=== PATIENT | male | born 1970 | race Caucasian/White ===

== ENCOUNTER → 2016-09-14 | Outpatient (CLI) | payer OTHER ==
[~2016-09-14] MED LIST: ACET500C35 PO; AMLO-114 PO; BENZ100C84 PO; HYDR-5688 PO; HYDR25TA5 PO; IBUP200T80 PO; ONDA4TAB10 SL; OXYC-57 PO; PRED-301 PO; SIMV20TA5 PO; VNTHFA/IN INH
--- NOTE | 2016-09-14 13:44 | DIAGNOSTIC IMAGING REPORT ---
CHEST 2 VIEWS ROUTINE CLINICAL HISTORY: Asthma COMPARISON STUDY: 05/21/2016 FINDINGS: The cardiac and mediastinal contours are normal. There is no evidence of focal pulmonary consolidation. There is no evidence of failure. No pleural effusions are visualized.[ A tiny density at the left lung base remains unchanged the prior study and likely reflects an area of atelectasis/scar. IMPRESSION: No active disease in the chest. Electronically signed by: Adiel Mcclure M.D. 09/14/2016 1:42 PM Dictated Date/Time: 09/14/2016 1:42 PM
[2016-09-14 14:46] LABS: BASO % 0.7 %; BASO ABS # 0.06 K/uL (0-0.2); COMPLETE YES; EOS % 1.5 %; HEMATOCRIT 43.7 % (42-52); IG% 1.1 %; LYMPH % 33.1 %; LYMPH ABS # 2.83 K/uL (1.2-3.4); MEAN CELL VOLUME 87.4 fL (80-100); MEAN CORPUSCULAR HEMOGLOBIN 32.2 pg (25-34); MEAN CORPUSCULAR HGB CONC 36.8 g/dl (32-36); MONO % 9.9 %; NEUT % 53.7 %; PLATELET COUNT 256 K/uL (130-400); WHITE BLOOD COUNT 8.55 K/uL (4.8-10.8)
[2016-09-14 15:09] LABS: BLOOD UREA NITROGEN 13 mg/dl (7-18); BUN/CREATININE RATIO 12.9 (10-20); CALCIUM 9.2 mg/dl (8.5-10.1); CARBON DIOXIDE 28 mmol/L (21-32); CHLORIDE 105 mmol/L (98-107); GLUCOSE 67 mg/dl (70-99); POTASSIUM 3.5 mmol/L (3.5-5.1); SODIUM 142 mmol/L (136-145)
== END | disposition home or self-care (01) ==
LOC: C.RAD1850 13:36
PROVIDERS: ATTEND Nurse Practitioner
DX: J45.909 Unspecified asthma, uncomplicated (principal)

== ENCOUNTER → 2016-10-13 | Outpatient (CLI) | payer OTHER ==
[2016-10-13 12:27] LABS: BASO % 0.6 %; BASO ABS # 0.03 K/uL (0-0.2); COMPLETE YES; EOS % 2.4 %; HEMATOCRIT 45.3 % (42-52); IG% 0.2 %; LYMPH % 29.1 %; LYMPH ABS # 1.45 K/uL (1.2-3.4); MEAN CELL VOLUME 89.3 fL (80-100); MEAN CORPUSCULAR HEMOGLOBIN 32.7 pg (25-34); MEAN CORPUSCULAR HGB CONC 36.6 g/dl (32-36); MEAN PLATELET VOLUME 10.4 fL (7.4-10.4); MONO % 7.6 %; NEUT % 60.1 %; PLATELET COUNT 246 K/uL (130-400); RED BLOOD COUNT 5.07 M/uL (4.7-6.1); WHITE BLOOD COUNT 4.99 K/uL (4.8-10.8)
[2016-10-13 12:47] LABS: BLOOD UREA NITROGEN 6 mg/dl (7-18); GLUCOSE 77 mg/dl (70-99)
[2016-10-13 12:48] LABS: ALB/GLOB RATIO 1.2 (0.9-2); ALKALINE PHOSPHATASE 63 U/L (45-117); ALT/SGPT 36 U/L (12-78); AST/SGOT 20 U/L (15-37); BUN/CREATININE RATIO 5.7 (10-20); CALCIUM 9.2 mg/dl (8.5-10.1); CARBON DIOXIDE 26 mmol/L (21-32); CHLORIDE 104 mmol/L (98-107); HDL CHOLESTEROL 43 mg/dl; POTASSIUM 3.8 mmol/L (3.5-5.1); SODIUM 139 mmol/L (136-145)
[2016-10-13 12:59] LABS: CHOLESTEROL 215 mg/dl (0-200); LDL CHOLESTEROL CALCULATED 133 mg/dl; TRIGLYCERIDES 195 mg/dl (0-150); VERY LOW DENSITY LIPOPROT CALC 39 mg/dl
== END | disposition home or self-care (01) ==
LOC: C.LABBFT 10:40
PROVIDERS: ATTEND Nurse Practitioner
DX: E78.00 Pure hypercholesterolemia, unspecified (principal); E55.9 Vitamin D deficiency, unspecified; R53.83 Other fatigue

== ENCOUNTER → 2016-12-07 | Outpatient (CLI) | payer OTHER ==
[~2016-12-07] MED LIST changes: -OXYC-57 PO
--- NOTE | 2016-12-07 12:48 | DIAGNOSTIC IMAGING REPORT ---
KUB CLINICAL HISTORY: N50.819 Testicular [id number] COMPARISON STUDY: CT scan dated 06/16/2016 FINDINGS: There are postsurgical changes in the left inguinal region. There is no pathologic bowel dilatation. There are no calcification suspicious for urinary tract calculi. IMPRESSION: 1. No evidence of pathologic bowel dilatation 2. No calculi identified on conventional radiographic imaging 3. Postsurgical changes, likely secondary to left inguinal hernia repair Electronically signed by: Adiel Mcclure M.D. 12/07/2016 12:45 PM Dictated Date/Time: 12/07/2016 12:44 PM
--- NOTE | 2016-12-07 13:12 | DIAGNOSTIC IMAGING REPORT ---
TESTICULAR ULTRASOUND HISTORY: Pain N50.819 Testicular [id number] COMPARISON: 05/12/2016 FINDINGS: Right testis: Maximum dimension 4.5 cm. Normal vascular flow. Hypoechoic region previously described measuring 2 mm at the upper pole. Represent a blood vessel and/or vein. Left testis: Maximum dimension 4.6 cm. Normal vascular flow IMPRESSION: Normal testicular ultrasound. Normal vascular flow bilaterally. Electronically signed by: Ehsan Young M.D. 12/07/2016 1:10 PM Dictated Date/Time: 12/07/2016 1:09 PM
== END | disposition home or self-care (01) ==
LOC: C.ULTR 12:05
PROVIDERS: ATTEND Urology
DX: E55.9 Vitamin D deficiency, unspecified (principal); N50.819 Testicular pain, unspecified

== ENCOUNTER 2017-01-14 12:03 | Emergency (ER) | payer OTHER ==
[~2017-01-14] VITALS: Ht 175.3 cm; Wt 115.3 kg
[~2017-01-14 12:03] MED LIST changes: -BENZ100C84 PO; -HYDR-5688 PO; -IBUP200T80 PO; -ONDA4TAB10 SL; -PRED-301 PO; -VNTHFA/IN INH
[2017-01-14 12:06] VITALS: TEMP 37.4; Ht 175.3 cm; Wt 115.3 kg
[2017-01-14] MEDS ORDERED: ALBUT/IPRATROP 3MG/0.5MG NEB 3 ML VIAL INH STA ×2 (12:36→15:49)
[2017-01-14 13:22] LABS: BASO % 0.1 %; BASO ABS # 0.01 K/uL (0-0.2); COMPLETE YES; HEMATOCRIT 41.9 % (42-52); LYMPH % 6.4 %; LYMPH ABS # 0.46 K/uL (1.2-3.4); MEAN CELL VOLUME 90.3 fL (80-100); MEAN CORPUSCULAR HEMOGLOBIN 31.5 pg (25-34); MEAN CORPUSCULAR HGB CONC 34.8 g/dl (32-36); MEAN PLATELET VOLUME 9.9 fL (7.4-10.4); MONO % 6.8 %; NEUT % 85.7 %; PLATELET COUNT 166 K/uL (130-400); RED BLOOD COUNT 4.64 M/uL (4.7-6.1)
--- NOTE | 2017-01-14 13:24 | DIAGNOSTIC IMAGING REPORT ---
TWO VIEW CHEST CLINICAL HISTORY: Atypical chest pain. Dyspnea.. FINDINGS: PA and lateral chest radiographs are compared to study dated 09/14/2016. The PA view is degraded by apical lordotic positioning. The examination is also degraded by large body habitus. The cardiomediastinal silhouette is unremarkable. The lungs and pleural spaces are clear. There is no pneumothorax. The bony thorax appears intact. IMPRESSION: No active disease in the chest. Electronically signed by: Andrea Colón M.D. 01/14/2017 1:23 PM Dictated Date/Time: 01/14/2017 1:22 PM
[2017-01-14] MEDS ORDERED: PRED-301 PO (13:29)
[2017-01-14] MEDS ORDERED: VNTHFA/IN INH (13:29)
[2017-01-14 13:40] LABS: ALT/SGPT 51 U/L (12-78); AST/SGOT 26 U/L (15-37); BLOOD UREA NITROGEN 12 mg/dl (7-18); BUN/CREATININE RATIO 11.1 (10-20); CALCIUM 8.7 mg/dl (8.5-10.1); CARBON DIOXIDE 29 mmol/L (21-32); CHLORIDE 108 mmol/L (98-107); GLUCOSE 118 mg/dl (70-99); POTASSIUM 3.8 mmol/L (3.5-5.1); SODIUM 143 mmol/L (136-145)
[2017-01-14 13:46] LABS: ALB/GLOB RATIO 1.2 (0.9-2); ALKALINE PHOSPHATASE 68 U/L (45-117)
[2017-01-14] MEDS ORDERED: KETOROLAC TROMETHAMINE 30 MG/ML VIAL IV STA (13:55)
[2017-01-14] MEDS ORDERED: BENZONATATE 100MG CAP PO ONE (14:00)
[2017-01-14 14:17] LABS: LYME DISEASE AB IGG NEG (NEG); LYME DISEASE AB IGM NEG (NEG)
[2017-01-14] MEDS ORDERED: LORAZEPAM 2 MG/ML 1 ML VIAL IV STA (14:57)
[2017-01-14] MEDS ORDERED: DEXAMETHASONE SOD INJ 10 MG/ML VIAL IV ONE (15:15)
--- NOTE | 2017-01-14 15:53 | EMERGENCY ROOM VISIT NOTE ---
History Report prepared by Marie: Maite Temple Under the Supervision of: Dr. Demetrice Young D.O. First contact with patient: 12:22 Chief Complaint: COUGH Stated Complaint: CHEST PAIN - HARD TO BREATH Nursing Triage Summary: Pt states he has had a cough for about 2 weeks, took Z-ofelia after being diagnosed with bronchitis and also steroids. Has had left sided CP that also started same time as cough. History of Present Illness The patient is a 46 year old male who presents to the Emergency Room with complaints of a persistent dry cough that started 2 weeks ago. He is also experiencing left-sided chest tightness and shortness of breath. He states that the chest pain is not affected by changes in position or exertion. The patient is also experiencing fevers and chills with the highest recorded fever around 101. Additionally, he is experiencing lightheadedness with changes in position and coughing. He states that he occasionally feels like he is going to experience syncope when he is lightheaded. He denies sore throat, ear pressure, nausea, vomiting, diarrhea, and lower extremity edema. The patient states that he went to see his PCP 2 days after his symptoms started. He was diagnosed with bronchitis and started on a z-pack. He finished the z-pack, but it did not relieve his symptoms. The patient states that when he had bronchitis in the past , a z-pack relieved his symptoms. The patient went to Urgent Care because he thought that some of his symptoms might be secondary to his asthma and they started him on prednisone. He is still taking the prednisone without any relief of his symptoms. The patient has also been using his albuterol inhaler at home without any relief. The patient adds that he noticed a tick bite on his left ankle 3 weeks ago. He states that the tick was still on his leg when he first noticed it. He states that the area was erythematous, but denies any erythema chronicum migrans. He did not mention the tick bite to his PCP. The patient denies any recent sick contacts. He also denies any significant history of seasonal allergies. The patient denies any recent travel. He states that he does not have any history of smoking. He also denies any history of heart problems. Source of History: patient Onset: 2 weeks ago Position: chest Quality: other (dry cough) Timing: other (persistent) Modifying Factors (Relieving): other (none) Associated Symptoms: + SOB, + chest pain, + chills, + fevers, No diarrhea, No nausea, No sorethroat, No vomiting Note: lightheadedness with changes in position and coughing, tick bite on left ankle, no ear pressure, no lower extremity edema Review of Systems See HPI for pertinent positives & negatives. A total of 10 systems reviewed and were otherwise negative. Past Medical & Surgical Medical Problems: (1) Asthma (2) Benign hypertension Family History Cancer Heart disease Hypertension Lung disease Social History Smoking Status: Never Smoker Alcohol Use: none Drug Use: none Marital Status: Housing Status: lives with family Occupation Status: employed Current/Historical Medications Scheduled Albuterol Hfa (Ventolin Hfa), 2-4 PUFFS INH Q6H Amlodipine (Norvasc), 10 MG PO QAM Benzonatate (Tessalon Perles), 1 CAP PO TID Hydrochlorothiazide (Hydrochlorothiazide), 25 MG PO QAM Prednisone (Prednisone), 0 PO UD Simvastatin (Zocor), 20 MG PO QPM Allergies Coded Allergies: Lisinopril (Verified Allergy, Mild, COUGH, 01/14/17) Physical Exam Vital Signs Date Time Temp Pulse Resp B/P Pulse Ox O2 Delivery O2 Flow Rate FiO2 01/14/17 16:27 90 18 146/92 95 01/14/17 15:12 93 18 155/93 96 Room Air 01/14/17 13:39 87 18 156/92 93 Room Air 01/14/17 12:38 84 01/14/17 12:18 96 Room Air 01/14/17 12:06 37.4 87 22 175/101 96 Room Air Physical Exam GENERAL: alert, well appearing, well nourished, no distress, non-toxic EYE EXAM: normal conjunctiva, PERRL and EOM's grossly intact OROPHARYNX: no exudate, no erythema, lips, buccal mucosa, and tongue normal and mucous membranes are moist NECK: supple, no nuchal rigidity, no adenopathy, non-tender LUNGS: Clear to auscultation. Normal chest wall mechanics HEART: no murmurs, S1 normal and S2 normal ABDOMEN: abdomen soft, non-tender, normo-active bowel sounds, no masses, no rebound or guarding. BACK: Back is symmetrical on inspection and there is no deformity, no midline tenderness, no CVA tenderness. SKIN: no rashes and no bruising UPPER EXTREMITIES: upper extremities are grossly normal. LOWER EXTREMITIES: Small healing excoriation on distal left lower extremity posterior to the medial malleolus, no surrounding erythema, no vesicles. NEURO EXAM: Normal sensorium, cranial nerves II-XII grossly intact, normal speech, no gross weakness of arms, no gross weakness of legs. Medical Decision & Procedures ER Provider Diagnostic Interpretation: Radiology results have been interpreted by the radiologist and reviewed by me. TWO VIEW CHEST FINDINGS: PA and lateral chest radiographs are compared to study dated 09/14/2016. The PA view is degraded by apical lordotic positioning. The examination is also degraded by large body habitus. The cardiomediastinal silhouette is unremarkable. The lungs and pleural spaces are clear. There is no pneumothorax. The bony thorax appears intact. IMPRESSION: No active disease in the chest. Electronically signed by: Andrea Colón M.D. 01/14/2017 1:23 PM Dictated Date/Time: 01/14/2017 1:22 PM Laboratory Results 01/14/17 13:00 Red Blood Count 4.64, Mean Corpuscular Volume 90.3, Mean Corpuscular Hemoglobin 31.5, Mean Corpuscular Hemoglobin Concent 34.8, Mean Platelet Volume 9.9, Neutrophils (%) (Auto) 85.7, Lymphocytes (%) (Auto) 6.4, Monocytes (%) (Auto) 6.8, Eosinophils (%) (Auto) 0.0, Basophils (%) (Auto) 0.1, Neutrophils # (Auto) 6.17, Lymphocytes # (Auto) 0.46, Monocytes # (Auto) 0.49, Eosinophils # (Auto) 0.00, Basophils # (Auto) 0.01 01/14/17 13:00 Test 01/14/17 13:00 White Blood Count 7.20 K/uL (4.8-10.8) Red Blood Count 4.64 M/uL (4.7-6.1) Hemoglobin 14.6 g/dL (14.0-18.0) Hematocrit 41.9 % (42-52) Mean Corpuscular Volume 90.3 fL (80-100) Mean Corpuscular Hemoglobin 31.5 pg (25-34) Mean Corpuscular Hemoglobin Concent 34.8 g/dl (32-36) Platelet Count 166 K/uL (130-400) Mean Platelet Volume 9.9 fL (7.4-10.4) Neutrophils (%) (Auto) 85.7 % Lymphocytes (%) (Auto) 6.4 % Monocytes (%) (Auto) 6.8 % Eosinophils (%) (Auto) 0.0 % Basophils (%) (Auto) 0.1 % Neutrophils # (Auto) 6.17 K/uL (1.4-6.5) Lymphocytes # (Auto) 0.46 K/uL (1.2-3.4) Monocytes # (Auto) 0.49 K/uL (0.11-0.59) Eosinophils # (Auto) 0.00 K/uL (0-0.5) Basophils # (Auto) 0.01 K/uL (0-0.2) RDW Standard Deviation 41.1 fL (36.4-46.3) RDW Coefficient of Variation 12.7 % (11.5-14.5) Immature Granulocyte % (Auto) 1.0 % Immature Granulocyte # (Auto) 0.07 K/uL (0.00-0.02) D-Dimer 310 ug/L FEU (0-500) Anion Gap 6.0 mmol/L (3-11) Est Creatinine Clear Calc Drug Dose 104.0 ml/min Estimated GFR () 92.2 Estimated GFR (Non- 79.5 BUN/Creatinine Ratio 11.1 (10-20) Calcium Level 8.7 mg/dl (8.5-10.1) Total Bilirubin 0.7 mg/dl (0.2-1) Aspartate Amino Transf (AST/SGOT) 26 U/L (15-37) Alanine Aminotransferase (ALT/SGPT) 51 U/L (12-78) Alkaline Phosphatase 68 U/L (45-117) Troponin I < 0.015 ng/ml (0-0.045) Pro-B-Type Natriuretic Peptide 41 pg/ml (0-450) Total Protein 7.3 gm/dl (6.4-8.2) Albumin 4.0 gm/dl (3.4-5.0) Globulin 3.3 gm/dl (2.5-4.0) Albumin/Globulin Ratio 1.2 (0.9-2) Lyme Disease IgG Antibody NEG (NEG) Lyme Disease IgM Antibody NEG (NEG) Laboratory results per my review. Medications Administered Medications (Trade) Dose Ordered Sig/Shakira Route Start Time Stop Time Status Last Admin Dose Admin Albuterol/ Ipratropium (Duoneb) 3 ml NOW STAT INH 01/14/17 12:36 01/14/17 12:39 DC 01/14/17 12:49 3 ML Ketorolac Tromethamine (Toradol Inj) 30 mg NOW STAT IV 01/14/17 13:55 01/14/17 13:56 DC 01/14/17 14:02 30 MG Benzonatate (Tessalon Perles Cap) 100 mg NOW ONCE PO 01/14/17 14:00 01/14/17 14:01 DC 01/14/17 14:01 100 MG Lorazepam (Ativan Inj) 0.5 mg NOW STAT IV 01/14/17 14:57 01/14/17 14:58 DC 01/14/17 15:06 0.5 MG Dexamethasone Sodium Phosphate (Decadron Inj) 10 mg NOW ONCE IV 01/14/17 15:15 01/14/17 15:16 DC 01/14/17 15:10 10 MG Albuterol/ Ipratropium (Duoneb) 3 ml NOW STAT INH 01/14/17 15:49 01/14/17 15:50 DC 01/14/17 15:54 3 ML ECG Indication: chest pain, SOB/dyspnea Rate (beats per minute): 86 Rhythm: sinus rhythm Findings: no acute ischemic change, other (normal axis, normal intervals) ED Course 1227: The patient was evaluated in room A4. A complete history and physical exam was performed. 1236: Ordered DuoNeb 3 ml INH 1352: I reassessed the patient. He said that the patient's nebulizer treatment helped briefly. I also updated him on his results so far. 1355: Ordered Toradol Inj 30 mg IV 1400: Ordered Benzonatate 100 mg PO 1446: I reassessed the patient. His cough is better and his breathing is better , but he states that it is still not normal. 1457: Ordered Ativan Inj 0.5 mg IV 1515: Ordered Decadron Inj 10 mg IV 1549: Ordered DuoNeb 3 ml INH 1615: Upon reevaluation, the patient is feeling better. I discussed the findings and the treatment plan with the patient. He verbalizes agreement and understanding. He was discharged home. Medical Decision Differential diagnoses includes but is not limited to pneumonia, bronchitis, COPD/Asthma exacerbation, pneumothorax, pulmonary embolism, congestive heart failure, acute coronary syndrome Medication Reconciliation: I attest that I have personally reviewed the patient' s current medication list. Pt improved here with neb tx and meds. Doubt cardiac etiology given negative labs, hpi, no risk factors, negative labs. No evidence of infiltrate, no leukocytosis/fever, doubt bacteremia/sepsis. Possible post viral cough exacerbating asthma. Pt states taking daily allergy meds. Possible seasonal allergies exacerbating asthma. Pt not hypoxic, no WOB evidence on exam, and pt reported improvement here. Discussed f/u with PCP, continued prednisone taper pt is currently on, use of MDI, pt given spacer, discussed sx to watch/return for, he verbalized understanding and was agreeable with plan. Impression Primary Impression: Upper respiratory infection Additional Impression: Asthma exacerbation Scribe Attestation The scribe's documentation has been prepared under my direction and personally reviewed by me in its entirety. I confirm that the note above accurately reflects all work, treatment, procedures, and medical decision making performed by me. Departure Information Dispostion Home / Self-Care Prescriptions Benzonatate (Tessalon Perles) 100 Mg Cap 1 CAP PO TID for 10 Days, #30 CAP Prov: Demetrice Young, DO 01/14/17 Referrals No Doctor, Assigned (PCP) Forms HOME CARE DOCUMENTATION FORM, IMPORTANT VISIT INFORMATION Patient Instructions My [facility] Additional Instructions Please follow up with your family doctor. Please use your spacer with your inhaler up to every 4 hours as needed for trouble breathing, wheezing, chest tightness. Please finish your steroid taper as previously prescribed. Please continue your daily allergy medications as prescribed also. If you have any worsening trouble breathing, increasing chest tightness, dizziness, fevers, vomiting, or you have any other new concerns, please return the emergency room. Problem Qualifiers Primary Impression: Upper respiratory infection URI type: unspecified URI Qualified Codes: J06.9 - Acute upper respiratory infection, unspecified
[2017-01-14] MEDS ORDERED: BENZ100C84 PO (16:21)
[2017-01-14 16:27] VITALS: BP 146/92; PULSE 90; O2SAT 95
== END 2017-01-14 16:28 | disposition home or self-care (01) ==
LOC: C.EDB 12:04 → C.EDA 16:28
DX: J06.9 Acute upper respiratory infection, unspecified (principal); J45.901 Unspecified asthma with (acute) exacerbation; R05 Cough; R07.9 Chest pain, unspecified; R50.9 Fever, unspecified; R42 Dizziness and giddiness; R11.2 Nausea with vomiting, unspecified; R19.7 Diarrhea, unspecified; I10 Essential (primary) hypertension; Z79.899 Other long term (current) drug therapy; Z82.49 Family history of ischemic heart disease and other diseases of the circulatory system; Z83.6 Family history of other diseases of the respiratory system

== ENCOUNTER 2017-01-16 11:36 | Emergency (ER) | payer OTHER ==
[~2017-01-16] VITALS: Ht 175.3 cm; Wt 115.8 kg
[~2017-01-16 11:36] MED LIST changes: -ACET500C35 PO; +BENZ100C84 PO; +PRED-301 PO; +VNTHFA/IN INH
[2017-01-16 11:38] VITALS: Ht 175.3 cm; Wt 115.8 kg
[2017-01-16] MEDS ORDERED: ACETAMINOPHEN 325 MG TAB PO STA (11:54)
[2017-01-16] MEDS ORDERED: SODIUM CHLORIDE 0.9% 1000ML 1,000 ML IV ONE (12:00)
[2017-01-16 12:09] VITALS: O2SAT 94
[2017-01-16 12:33] LABS: MEAN CELL VOLUME 89.9 fL (80-100); MEAN CORPUSCULAR HEMOGLOBIN 31.8 pg (25-34); MEAN CORPUSCULAR HGB CONC 35.4 g/dl (32-36); PLATELET COUNT 115 K/uL (130-400); RED BLOOD COUNT 4.34 M/uL (4.7-6.1); WHITE BLOOD COUNT 3.87 K/uL (4.8-10.8)
[2017-01-16 12:40] LABS: URINE APPEARANCE CLEAR (CLEAR); URINE BILIRUBIN NEG (NEG); URINE COLOR YELLOW; URINE NITRITE NEG (NEG); URINE PH 5.5 (4.5-7.5); URINE SPECIFIC GRAVITY 1.019 (1.000-1.030); UROBILINOGEN NEG (NEG); ZZUR CULT IF INDIC CLEAN CATCH NO
[2017-01-16 12:42] LABS: MANUAL MICROSCOPIC REQUIRED? NO; REVIEW REQ? NO
--- NOTE | 2017-01-16 12:45 | DIAGNOSTIC IMAGING REPORT ---
CHEST 2 VIEWS ROUTINE CLINICAL HISTORY: Fever and cough. COMPARISON STUDY: Chest radiograph January 14, 2017. FINDINGS: Lung volumes are normal. There is no pneumothorax or pleural effusion. Pulmonary vascularity is normal. There is no consolidation to suggest pneumonia. Linear left basilar opacity is suggestive of atelectasis or scarring. IMPRESSION: No acute cardiopulmonary findings. Electronically signed by: Melvin Rueda M.D. 01/16/2017 12:43 PM Dictated Date/Time: 01/16/2017 12:41 PM
--- NOTE | 2017-01-16 12:53 | EMERGENCY ROOM VISIT NOTE ---
History Report prepared by Marie: Thiago Velasquez Under the Supervision of: Dr. Brendon Mcgee M.D. First contact with patient: 11:50 Chief Complaint: FEVER Stated Complaint: FEVER, DIZZY, NAUSEA, NUMBNESS ARMS AND LEGS History of Present Illness The patient is a 46 year old male who presents to the Emergency Room with complaints of a constant fever beginning 3 days ago. He currently rates his discomfort a 6/10 in severity. The patient states that it feels like he is 'on fire'. He notes that when he took his temperature at home it was '106 degrees'. The patient reports that he has: a cough, abdominal pain, a tingling sensation in his hands and fingers, chills, normal bowel movements, shortness of breath, lightheadedness, a decreased appetite, and nausea. He notes that he took Ibuprofen, but it is not helping with his fever. The patient states that he was in the ER 2 days ago for similar symptoms, where he had a chest x-ray and blood work performed; all of which were normal. He reports that no one else at home is sick, and he has never been this sick before. The patient states that he has hypertension and asthma. He notes that he uses his inhaler regularly. Source of History: patient Onset: 3 days ago Position: other (global) Symptom Intensity: 6/10 Quality: other (fever) Timing: constant Associated Symptoms: + SOB, + abdominal pain, + chills, + cough, + nausea Note: Associated symptoms: tingling sensation in his hands and fingers, lightheadedness, and a decreased appetite Review of Systems All systems have been listed, reviewed, and are negative other than those previously mentioned. Please see Additional Medical History Sheet. Past Medical & Surgical Medical Problems: (1) Asthma (2) Benign hypertension Surgical Problems: (1) Hernia Family History Cancer Diabetes mellitus Heart disease Hypertension Lung disease Seizures Social History Smoking Status: Never Smoker Alcohol Use: none Drug Use: none Marital Status: Housing Status: lives with family Occupation Status: employed Current/Historical Medications Scheduled Albuterol Hfa (Ventolin Hfa), 2-4 PUFFS INH Q6H Amlodipine (Norvasc), 10 MG PO QAM Benzonatate (Tessalon Perles), 1 CAP PO TID Hydrochlorothiazide (Hydrochlorothiazide), 25 MG PO QAM Prednisone (Prednisone), 0 PO UD Simvastatin (Zocor), 20 MG PO QPM Scheduled PRN Ibuprofen (Ibu-200), 2 TAB PO QID PRN for Pain Allergies Coded Allergies: Lisinopril (Verified Allergy, Mild, COUGH, 01/16/17) Physical Exam Vital Signs Date Time Temp Pulse Resp B/P Pulse Ox O2 Delivery O2 Flow Rate FiO2 01/16/17 15:00 81 20 122/86 93 Room Air 01/16/17 14:00 37.0 01/16/17 13:39 37.0 79 18 130/66 95 Room Air 01/16/17 12:09 94 Room Air 01/16/17 11:38 39.3 100 20 158/85 93 Room Air Physical Exam GENERAL: Patient awake, alert, oriented x 3. Patient follows commands. Patient does not appear toxic. Patient is adequately hydrated and well- nourished. SKIN: No erythema, pallor, cyanosis or rash HEENT: Normal head, pupils equal, reactive to light and accommodation. Ears normal. Oral cavity and posterior pharynx appear normal. Neck: Without adenopathy, no neck vein distention. LUNGS: Clear to auscultation. No wheezes, no rales, no rhonchi. HEART: No murmurs. No gallops. No rubs ABDOMEN: Obese, No masses, no rebound, no hepatomegaly or splenomegaly. EXTREMITIES: No signs of trauma. No pedal or pretibial edema. No calf or thigh tenderness. NEUROLOGIC: Cranial nerves II-XII within normal limits. No gross motor sensory function deficits. Medical Decision & Procedures ER Provider Diagnostic Interpretation: X ray results are stated below per my interpretation and the radiologist's interpretation. CHEST 2 VIEWS ROUTINE CLINICAL HISTORY: Fever and cough. COMPARISON STUDY: Chest radiograph January 14, 2017. FINDINGS: Lung volumes are normal. There is no pneumothorax or pleural effusion. Pulmonary vascularity is normal. There is no consolidation to suggest pneumonia. Linear left basilar opacity is suggestive of atelectasis or scarring. IMPRESSION: No acute cardiopulmonary findings. Electronically signed by: Melvin Rueda M.D. 01/16/2017 12:43 PM Dictated Date/Time: 01/16/2017 12:41 PM Laboratory Results 01/16/17 12:05 Red Blood Count 4.34, Mean Corpuscular Volume 89.9, Mean Corpuscular Hemoglobin 31.8, Mean Corpuscular Hemoglobin Concent 35.4, Mean Platelet Volume 10.0 01/16/17 12:05 Test 01/16/17 12:05 01/16/17 12:15 01/16/17 12:19 01/16/17 12:21 White Blood Count 3.87 K/uL (4.8-10.8) Red Blood Count 4.34 M/uL (4.7-6.1) Hemoglobin 13.8 g/dL (14.0-18.0) Hematocrit 39.0 % (42-52) Mean Corpuscular Volume 89.9 fL (80-100) Mean Corpuscular Hemoglobin 31.8 pg (25-34) Mean Corpuscular Hemoglobin Concent 35.4 g/dl (32-36) Platelet Count 115 K/uL (130-400) Mean Platelet Volume 10.0 fL (7.4-10.4) RDW Standard Deviation 41.3 fL (36.4-46.3) RDW Coefficient of Variation 12.6 % (11.5-14.5) Neutrophils % (Manual) 72.2 % Lymphocytes % (Manual) 17.9 % Monocytes % (Manual) 5.4 % Basophils % (Manual) 1.8 % (0-2) Metamyelocytes % 0.9 % Myelocytes % 1.8 % Neutrophils # (Manual) 2.79 K/uL (1.4-6.5) Total Absolute Neutrophils 2.79 K/uL (1.4-6.5) Lymphocytes # (Manual) 0.69 K/uL (1.2-3.4) Total Absolute Lymphocytes 0.69 K/uL (1.2-3.4) Monocytes # (Manual) 0.21 K/uL (0.11-0.59) Basophils # (Manual) 0.07 K/uL (0-0.2) Metamyelocytes # 0.03 K/uL (0-0) Myelocytes # 0.07 K/uL (0-0) Red Blood Cell Morphology Unremarkable Anion Gap 6.0 mmol/L (3-11) Est Creatinine Clear Calc Drug Dose 95.5 ml/min Estimated GFR () 83.0 Estimated GFR (Non- 71.6 BUN/Creatinine Ratio 12.9 (10-20) Calcium Level 7.9 mg/dl (8.5-10.1) Total Bilirubin 1.2 mg/dl (0.2-1) Aspartate Amino Transf (AST/SGOT) 37 U/L (15-37) Alanine Aminotransferase (ALT/SGPT) 50 U/L (12-78) Alkaline Phosphatase 68 U/L (45-117) Troponin I < 0.015 ng/ml (0-0.045) Total Protein 6.5 gm/dl (6.4-8.2) Albumin 3.6 gm/dl (3.4-5.0) Globulin 2.9 gm/dl (2.5-4.0) Albumin/Globulin Ratio 1.2 (0.9-2) Chemistry Specimen Hemolysis Influenza Type A (RT-PCR) Neg for Influ A (NEG) Influenza Type B (RT-PCR) Neg for Influ B (NEG) Bedside Lactic Acid Venous 1.36 mmol/L (0.90-1.70) Urine Color YELLOW Urine Appearance CLEAR (CLEAR) Urine pH 5.5 (4.5-7.5) Urine Specific [place] 1.019 (1.000-1.030) Urine Protein NEG (NEG) Urine Glucose (UA) NEG (NEG) Urine Ketones NEG (NEG) Urine Occult Blood TRACE (NEG) Urine Nitrite NEG (NEG) Urine Bilirubin NEG (NEG) Urine Urobilinogen NEG (NEG) Urine Leukocyte Esterase NEG (NEG) Urine WBC (Auto) 1-5 /hpf (0-5) Urine RBC (Auto) 0-4 /hpf (0-4) Urine Hyaline Casts (Auto) 1-5 /lpf (0-5) Urine Epithelial Cells (Auto) 5-10 /lpf (0-5) Urine Bacteria (Auto) NEG (NEG) Laboratory results as stated above per my review. Medications Administered Medications (Trade) Dose Ordered Sig/Shakira Route Start Time Stop Time Status Last Admin Dose Admin Acetaminophen 1000 mg 1,000 mg NOW STAT PO 01/16/17 11:54 01/16/17 11:58 DC 01/16/17 12:46 1,000 MG Sodium Chloride (Nss 1000ml) 1,000 ml @ 1,000 mls/hr Q1H ONCE IV 01/16/17 12:00 01/16/17 12:59 DC 01/16/17 12:25 1,000 MLS/HR ECG Indication: other (fever) Rate (beats per minute): 91 Rhythm: sinus rhythm Findings: no acute ischemic change, no ectopy ED Course 1150: Past medical records reviewed. The patient was evaluated in room C11B. A complete history and physical examination was performed. 1154: Ordered Tylenol Tab 1,000mg PO 1200: Ordered Sodium Chloride 1000 ml @ 1000 mls/hr IV 1420: Upon reevaluation, the patient appeared to have improvement of fever symptoms. I discussed today's findings with the patient. He verbalized agreement of the treatment plan. He was discharged home. Medical Decision I considered multiple diagnoses including: influenza, viral infection, pneumonia , urinary tract infection, sepsis. Medication Reconciliation: I attest that I have personally reviewed the patient' s current medication list. Blood Pressure Screening: Patient was found to have an elevated blood pressure and was referred to their primary doctor for recheck and further treatment. Multiple labs and imaging were obtained. Please see above. The patient does not appear to have pulmonary infiltrate. White count is not elevated. Influenza testing was negative. Lyme testing from 2 days ago was also negative. Fever resolved with Tylenol. Patient will continue Tylenol home. She was instructed to drink extra fluids. Most likely cause for his fever is viral. I do not believe the patient requires antibiotics at this time. Impression Primary Impression: Viral infection Scribe Attestation The scribe's documentation has been prepared under my direction and personally reviewed by me in its entirety. I confirm that the note above accurately reflects all work, treatment, procedures, and medical decision making performed by me. Departure Information Dispostion Home / Self-Care Referrals No Doctor, Assigned (PCP) Patient Instructions My [facility] [employer] Additional Instructions Drink at least 3-4 quarts of liquid over the next 24 hours. 650 mg of Tylenol every 4 hours as needed for aches, pain or fever. Follow-up with your family physician or return here in one week if symptoms have not resolved.
[2017-01-16 12:57] LABS: ALT/SGPT 50 U/L (12-78); AST/SGOT 37 U/L (15-37); BLOOD UREA NITROGEN 15 mg/dl (7-18); BUN/CREATININE RATIO 12.9 (10-20); CALCIUM 7.9 mg/dl (8.5-10.1); CARBON DIOXIDE 30 mmol/L (21-32); CHLORIDE 105 mmol/L (98-107); GLUCOSE 102 mg/dl (70-99); POTASSIUM 3.3 mmol/L (3.5-5.1); SODIUM 141 mmol/L (136-145)
[2017-01-16 13:02] LABS: ALB/GLOB RATIO 1.2 (0.9-2); ALKALINE PHOSPHATASE 68 U/L (45-117)
[2017-01-16 13:20] LABS: BASO ABS # 0.07 K/uL (0-0.2); BASOPHIL % 1.8 % (0-2); COMPLETE YES; LYMPH ABS # 0.69 K/uL (1.2-3.4); LYMPHOCYTE % 17.9 %; META ABS # 0.03 K/uL (0-0); METAMYELOCYTE % 0.9 %; MYELOCYTE % 1.8 %; NEUTROPHILS % 72.2 %
[2017-01-16] MEDS ORDERED: IBUP200T80 PO (13:22)
[2017-01-16 14:00] VITALS: TEMP 37
[2017-01-16 14:08] LABS: INFLUENZA A PCR Neg for Influ A (NEG); INFLUENZA B PCR Neg for Influ B (NEG)
[2017-01-16 15:00] VITALS: BP 122/86; PULSE 81; O2SAT 93
== END 2017-01-16 15:04 | disposition home or self-care (01) ==
LOC: C.EDB 11:38 → C.EDC 15:04
DX: B34.9 Viral infection, unspecified (principal); R50.9 Fever, unspecified; R05 Cough; E66.9 Obesity, unspecified; R10.9 Unspecified abdominal pain; R20.2 Paresthesia of skin; R06.02 Shortness of breath; I10 Essential (primary) hypertension; J45.909 Unspecified asthma, uncomplicated; Z79.899 Other long term (current) drug therapy; Z87.19 Personal history of other diseases of the digestive system; Z82.0 Family history of epilepsy and other diseases of the nervous system; Z82.49 Family history of ischemic heart disease and other diseases of the circulatory system; Z83.3 Family history of diabetes mellitus; Z83.6 Family history of other diseases of the respiratory system

== ENCOUNTER → 2017-02-08 | Outpatient (CLI) | payer OTHER ==
[~2017-02-08] MED LIST changes: -BENZ100C84 PO; +IBUP200T80 PO
--- NOTE | 2017-02-08 15:10 | DIAGNOSTIC IMAGING REPORT ---
CT ANGIOGRAM OF THE CHEST CLINICAL HISTORY: Cough, shortness of breath. Possible pulmonary embolism. COMPARISON STUDY: Chest CT dated 12/27/2012 TECHNIQUE: Following the IV administration of 102 mL of Optiray-320, CT angiogram of the thorax was performed from the thoracic inlet to the lung bases utilizing the pulmonary embolus protocol. Images are reviewed in the axial, sagittal, and coronal planes. IV contrast was administered without complication. MIP imaging was performed. CT DOSE: 697.21 mGy.cm FINDINGS: No pathologically enlarged axillary mediastinal or hilar lymph nodes were visualized. There was no evidence of thoracic aortic dilatation. There were no pulmonary artery filling defects to indicate acute pulmonary embolism. No pleural effusions are visualized. There are mild atelectatic changes present within the lingula and right middle lobe. There are no airspace opacities suspicious for pneumonia. IMPRESSION: 1. No evidence of acute pulmonary embolism 2. No evidence of pathologic adenopathy 3. No evidence of pneumonia 4. Minor lingular and right middle lobe atelectatic change Electronically signed by: Adiel Mcclure M.D. 02/08/2017 3:08 PM Dictated Date/Time: 02/08/2017 3:05 PM
== END | disposition home or self-care (01) ==
LOC: C.CTS 14:23
PROVIDERS: ATTEND Internal Medicine
DX: R06.02 Shortness of breath (principal)

== ENCOUNTER → 2017-02-08 | Outpatient (CLI) | payer OTHER ==
[2017-02-12 02:35] LABS: BORDETELLA PERTUSSIS SOURCE Nasal Swab
== END | disposition home or self-care (01) ==
LOC: C.LABBFT 10:34
PROVIDERS: ATTEND Internal Medicine
DX: R05 Cough (principal)

== ENCOUNTER → 2017-05-25 | Outpatient (CLI) | payer OTHER ==
[2017-05-25 13:15] LABS: URINE APPEARANCE CLEAR (CLEAR); URINE BILIRUBIN NEG (NEG); URINE COLOR YELLOW; URINE NITRITE NEG (NEG); URINE PH 5.5 (4.5-7.5); UROBILINOGEN NEG (NEG); ZZUR CULT IF INDIC CLEAN CATCH NO
[2017-05-25 13:19] LABS: MANUAL MICROSCOPIC REQUIRED? NO; REVIEW REQ? NO
== END | disposition home or self-care (01) ==
LOC: C.LAB1850 10:57
PROVIDERS: ATTEND Internal Medicine
DX: I10 Essential (primary) hypertension (principal); N52.9 Male erectile dysfunction, unspecified; R35.1 Nocturia

== ENCOUNTER → 2017-08-23 | Outpatient (CLI) | payer OTHER ==
[~2017-08-23] VITALS: Ht 175.3 cm; Wt 111.0 kg
[~2017-08-23] MED LIST changes: -AMLO-114 PO; +AMLO10TA3 PO
[2017-08-23 12:13] VITALS: BP 140/88; PULSE 71; Ht 175.3 cm; Wt 111.0 kg
== END | disposition home or self-care (01) ==
LOC: C.NEUR 11:42
PROVIDERS: ATTEND Physician Assistant Medical
DX: G47.33 Obstructive sleep apnea (adult) (pediatric) (principal); E66.9 Obesity, unspecified; R35.1 Nocturia; R51 Headache; D33.2 Benign neoplasm of brain, unspecified; H47.10 Unspecified papilledema; R06.83 Snoring; R53.83 Other fatigue

== ENCOUNTER → 2017-08-25 | Outpatient (CLI) | payer OTHER ==
[~2017-08-25] MED LIST changes: +GADAVIST IV PRN
--- NOTE | 2017-08-25 12:43 | DIAGNOSTIC IMAGING REPORT ---
MRI OF THE ORBITS COMBO CLINICAL HISTORY: Headache and vision loss of 9 years duration. COMPARISON STUDY: MRI of the orbits dated 08/08/2014 TECHNIQUE: MRI of the orbits is performed utilizing various T1 and T2-weighted sequences in the axial and coronal planes. Contrast-enhanced sequences were acquired following the IV administration of 11 cc of Gadavist. FINDINGS: The bony orbits are intact as visualized. Orbital contents are normal in appearance. The extraocular musculature is normal and symmetric. The optic nerves are normal inferior. No enhancing mass is present in the intra or extraconal space. Mild mucosal thickening is seen within the left ethmoid and frontal sinuses. Normal flow voids are present at the skull base. The imaged brain parenchyma is within normal limits. The imaged calvarium appears intact. IMPRESSION: 1. Unremarkable MRI assessment of the orbits. 2. The visualized brain parenchyma is normal in appearance. Electronically signed by: Andrea Colón M.D. 08/25/2017 12:41 PM Dictated Date/Time: 08/25/2017 12:35 PM
--- NOTE | 2017-08-25 13:13 | DIAGNOSTIC IMAGING REPORT ---
BRAIN COMBO CLINICAL HISTORY: R51 AketaqmgT14.10 RhxopsvukjzS20.7 Vision [id number] mental status change COMPARISON STUDY: 08/16/2014 TECHNIQUE: Utilizing a 1.5 Jailene magnet and dedicated coil, multiplanar, multiecho imaging of the brain was performed pre and postcontrast administration. IV administration of 11 mL of Gadavist contrast was uneventful. FINDINGS: Diffusion-weighted images show no evidence for an acute ischemic insult. Signal characteristics of the cerebellar as well as cerebral hemispheres are unremarkable. The ventricular system is midline. Postcontrast images are considered negative for an enhancing lesion. Sella and parasellar regions are unremarkable. The ventricular system is midline. IMPRESSION: No acute process. The above report was generated using voice recognition software. It may contain grammatical, syntax or spelling errors. Electronically signed by: Ehsan Young M.D. 08/25/2017 1:11 PM Dictated Date/Time: 08/25/2017 1:03 PM
== END | disposition home or self-care (01) ==
LOC: C.MRI 10:02
PROVIDERS: ATTEND Psychiatry & Neurology Neurology
DX: H54.7 Unspecified visual loss (principal); H47.10 Unspecified papilledema; R51 Headache

== ENCOUNTER → 2017-08-31 | Outpatient (CLI) | payer OTHER ==
[~2017-08-31] MED LIST changes: +AMLO-114 PO; -AMLO10TA3 PO; -GADAVIST IV PRN
--- NOTE | 2017-09-01 05:48 | PAP/PSG TECHNICIAN REPORT ---
[facility] Student Success Counselor Polysomnogram Report Study name: None Report date: 09/01/2017 Study date: 08/31/2017 Referring Physician: Yeny Garsia PA-C Name: DEVIN PEDRO Interpreting Physician: Smooth Aponte M.D. Date of : 1970 Student Success Counselor: Joaquin Smith RPSGT. Sex: Male Age: 47 StudyType: PSG Weight: 251 lbs 18.5 inches Height: 47 years, Height 6' 9" Neck Circum: BMI: 26.89 Medications: ACETAZOLAMIDE ER 500 MG, AMLODIPINE BESYLATE 10 MG, ATORVASTATIN CALCIUM 40 MG, BUPROPION HCL ER 150 MG, CARVEDILOL 6.25 MG, DICLOFENAC SODIUM 75 MG, HYDROCHLOROTHIAZIDE 25 MG, ONDANSETRON HCL 4 MG, RANITIDINE HCL 150 MG, TOPIRAMATE 50 MG, VENTOLIN HFA 108 90 BASE Patient History PATIENT HAS HISTORY OF GERD, HYPERTENSION, NOCTURIA AND DEPRESSION. HE ALSO HAS HISTORY OF SNORING, DAYTIME SLEEPINESS AND HEADACHES. HE IS HERE TODAY FOR AN EVALUATION FOR MELANY. ESS = 15 RM 6 Parameters Monitored NPSG: E1-M2, E2-M1, Fp1-M2, Fp2-M1, F3-M2, F4-M2, F4-M1, C3-M2, C4-M2, C4-M1, O1-M2, O2-M2, O2-M1, T3-M2, T4-M1, P3-M2, P4-M1, CHIN1, CHIN2, HR, EKG, Legs, PFLOW, SNOR, FLOW, CFLOW, Tidal Volume, THOR, ABDO, SpO2, PLTH, CPRESS, ETCO2 Wave, ETCO2, pH Sleep Architecture Sleep Stages Time at Lights Off 10:00:39 PM STAGES Time (min.) TST (%) Time at Lights On 5:27:39 AM Wake 51.5 -- Total Recording Time (TRT) 447.50 min. N1 15.0 4 Total Sleep Period (TSP) 416.0 min. N2 289.5 73 Total Sleep Time (TST) 395.5min. N3 4.5 1 Awake Time 51.5 min. REM 86.5 22 Wake after Sleep Onset 20.5 min. Sleep Efficiency (SE) 88 % Sleep Onset Latency (JULIANA) 31.0 min. Number of Stage 1 Shifts None Awakenings 12 Stage Changes 51 Number of REM periods 4 REM 86.5 22 REM Latency 74.5 min. NREM 309.0 78 Body Position Analysis Supine Right Left Side Prone Vertical Total Sleep Time (min.) 121.0 137.2 183.5 320.65 0.0 0.0 Total Sleep Time (%) 19% 35% 46% 81 0% N/A% Total Sleep Time REM (min.) 21.5 15.0 50.0 None 0.0 0.0 Total Sleep Time NREM (min.) 53.4 122.2 133.5 None 0.0 0.0 Intermittent Wake (min.) 46.2 1.8 3.5 None 0.0 0.0 Total Sleep Period (%) 22% None None None None None Arousals Myoclonus (PLM) * Events Count Index Events Count Index Spontaneous 19 3 Events Awake (PLMW) 69 80.4 Respiratory 0 0.0 Events Asleep w/ Arousal (PLMA) 8 1.2 PLM 8 1 Events Asleep w/o Arousal (PLMS) 63 9.6 Snoring 8 1 Total Asleep 71 10.8 Total 35 5 Total 140 19 Respiratory Analysis * CA OA MA CH H RERA Total Count 0 0 0 0 53 0 53 Index 0.0 0.0 0.0 0 8.0 0 8.0 Mean Duration 0.0 0.0 0.0 0.00 24.8 0.0 24.8 Longest Duration 0.0 0.0 0.0 0.00 0.0 0.0 53.1 Respiratory Event Summary Total Supine ~Supine Right Left Prone REM NREM Apneas Count 0 0 0 0 0 N/A 0 0 Index 0.0 0 0 0.0 0.0 N/A 0 0 Hypopneas (4% Desat) Count 53 22 31 0 31 N/A 49 4 Index 8.0 17.6 6 0.0 10.1 N/A 34.0 0.8 Apneas & All Hypopneas Count 53 22 31 0 31 N/A 49 4 Index 8.0 18 6 0 10 N/A 34.0 0.8 Respiratory Events (Services Mgr+All Hyp+RERA) Count 53 22 31 0 31 N/A 49 4 Index 8.0 18 6 0.0 10.1 N/A 34.0 0.8 Respiratory Related Arousal Count 0 22 0 0 0 N/A 0 0 Index 0.0 0 0 0 0 N/A 0 0 Snoring Analysis Supine Right Left Prone REM NREM Total Snore duration 80.4 min Snores count 328 1,625 1,176 N/A 363 2,766 3,129 Snore mean duration 1.5 Sec Snores index 263 711 385 N/A 251.8 537.1 474.7 TST with snoring (%) 20.3% Desaturation Event Summary: Minimum %SpO2 Event Count Mean/Min/Max Duration(sec.) Desaturation Index % Time In Bed > 90 51 42.4 / 8.5 / 96.7 13.5 50.6 86 - 90 9 26.6 / 8.5 / 63.0 2.5 48.6 81 - 85 0 N/A 0.0 0.7 76 - 80 0 N/A 0.0 0.1 71 - 75 0 N/A 0.0 0.0 66 - 70 0 N/A 0.0 0.0 61 - 65 0 N/A 0.0 0.0 56 - 60 0 N/A 0.0 0.0 51 - 55 0 N/A 0.0 0.0 < 50 0 N/A 0.0 0.0 Total REM NREM Awake <50% 0.0 min. 0.0 min. 0.0 min. 0.0 min. 51 - 60% 0.0 min. 0.0 min. 0.0 min. 0.0 min. 61 - 70% 0.0 min. 0.0 min. 0.0 min. 0.0 min. 71 - 80% 0.4 min. 0.4 min. 0.0 min. 0.0 min. 81 - 90% 220.3 min. 60.1 min. 157.2 min. 3.0 min. 91 - 100% 226.3 min. 26.0 min. 151.8 min. 48.5 min. Average 91 89 91 92 Minimum SpO2 79 79 87 86 Desaturation Event Index 7.5 34.0 0.8 3.5 # Desat. Events below 89% 42 40 1 1 Time(%) with Saturation below 89% 9.4 6.2 3.0 0.2 Time(min.) with Saturation below 89% 42.2 27.8 13.6 0.9 Time (mins) REM (mins) NREM (mins) % of TST SpO2 Below 90% 52 49 N3 21.6 SpO2 Below 88% 28 0 0 4 Heart Rate Analysis Min (bpm) Max (bpm) Average (bpm) Awake 48 99 61 NREM 48 85 58 REM 48 84 58 Overall 48 85 58 Supplemental O2 Values Minimum O2 level: None Value Start Time End Time Student Success Counselor Comments Mr. Pedro slept in the right, left and supine positions. No cardiac arrhythmia noted. Leg movements noted. No bruxism noted. Snoring was noted and scored as a 4 on a scale of 1 through 5. (0=no snoring, 5=snoring loud enough to be heard through a closed door or down the [address] way) Mr. Pedro awoke to use the restroom 0 times during the night. Mr. Pedro stated I did not sleep as well as I do when I am in my own bed. The final report will be interpreted and signed by a sleep physician. The completed physician report will then be placed in the patient medical record. Therapy (cm H2O) 0 TIB (min.) 447.0 TST (min.) 395.5 Sleep Onset (min.) 31.0 REM Onset From Sleep (min.) 74.5 Sleep Efficiency % 88 Wakefulness (%) 12 Wakefulness (min.) 51.5 NREM 1 (%) 4 NREM 1 (min.) 15.0 NREM 2 (%) 73 NREM 2 (min.) 289.5 NREM 3 (%) 1 NREM 3 (min.) 4.5 REM (%) 22 REM (min.) 86.5 # Arousals 35 Arousal Index 5 # Snore 3,129 Snore Index 474.7 AHI 8.0 AHI Supine 18 AHI Non-Supine 6 NREM AHI 0.8 REM AHI 34.0 RDI 8.0 # Obstructive Apnea 0 # Central Apnea 0 # Mixed Apnea 0 # Hypopneas 53 RERAs 0 Total Respiratory Events 53 Time Below SpO2 89% (min.) 41.3 Mean NREM SpO2 (%) 91 Mean REM SpO2 (%) 89 Mean Sleep SpO2 (%) 90 Min NREM SpO2 (%) 87 Min REM SpO2 (%) 79 Position Supine (min.) 121.0 Position Non-supine (min.) 320.6 LM Index Sleep 10.8 LM Index NREM 10.5 LM Index REM 11.8 Mean Heart Rate (bpm) 58 Min Heart Rate (bpm) 48
--- NOTE | 2017-09-02 13:59 | POLYSOMNOGRAPH REPORT ---
CLINICAL DATA: A 47-year-old male with BMI of 26.9 referred by Yeny Garsia and myself with a history of snoring, fatigue, headaches, hypertension, nocturia, and depression. SLEEP ARCHITECTURE: Total sleep period was 416 minutes. Total sleep time was 395.5 minutes divided between 309 minutes of non-REM sleep and 86.5 minutes of REM sleep. Sleep latency was delayed at 31 minutes. REM latency was 74.5 minutes. Sleep efficiency was 88%. Wake after sleep onset was 20.5 minutes. Sleep consisted of stage N1 4%, stage N2 73%, stage N3 1%, and REM 22%. AROUSAL DATA: Thirty-five arousals were recorded for an index of 5 per hour. Nineteen were spontaneous. PLM DATA: Seventy-one limb movements during sleep were noted for an index of 10.8 per hour with arousal index of 1.2 per hour. RESPIRATORY DATA: Very mild sleep apnea was seen. The AHI was 8. There were 53 hypopneic episodes with a mean duration of 24.8 seconds. OXIMETRY DATA: Nocturnal hypoxemia was seen. Oxygen michelle was 79% during REM. The mean saturation was 91%. Time below 88% was 29 minutes. EKG: Heart rates ranged from 48-85 beats per minute. No arrhythmias were noted. BAND MASTER'S COMMENTS: The patient slept in the right, left, and supine positions. Snoring was severe, rated 4 on a scale of 1-5. IMPRESSION: Mild sleep apnea/hypopnea with an AHI of 8 with nocturnal hypoxemia. RECOMMENDATIONS: The patient may benefit from a repeat sleep study with CPAP, use of auto CPAP, or use of an oral appliance. Clinical correlation is needed. [facility] HOSPITALNawaf
== END | disposition home or self-care (01) ==
LOC: C.NEUR 20:00
PROVIDERS: ATTEND Physician Assistant Medical
DX: R53.83 Other fatigue (principal); G47.33 Obstructive sleep apnea (adult) (pediatric); E66.9 Obesity, unspecified; R06.83 Snoring

== ENCOUNTER → 2017-10-06 | Outpatient (CLI) | payer OTHER | END | disposition home or self-care (01) | LOC: C.LABBFT 10:24 | PROVIDERS: ATTEND Physician Assistant Medical | DX: E55.9 Vitamin D deficiency, unspecified (principal) ==

== ENCOUNTER → 2017-12-06 | Outpatient (CLI) | payer OTHER ==
[~2017-12-06] VITALS: Ht 175.3 cm; Wt 111.8 kg
[2017-12-06 12:46] VITALS: BP 148/97; PULSE 62; Ht 175.3 cm; Wt 111.8 kg
== END | disposition home or self-care (01) ==
LOC: C.NEUR 12:18
PROVIDERS: ATTEND Internal Medicine Pulmonary Disease
DX: G47.33 Obstructive sleep apnea (adult) (pediatric) (principal); I10 Essential (primary) hypertension; R51 Headache; D33.2 Benign neoplasm of brain, unspecified; R06.83 Snoring

== ENCOUNTER → 2018-01-04 | Outpatient (CLI) | payer OTHER ==
[~2018-01-04] MED LIST changes: +OPTIRAY 320 IV PRN
--- NOTE | 2018-01-04 14:48 | DIAGNOSTIC IMAGING REPORT ---
CT SCAN OF THE ABDOMEN AND PELVIS WITH IV CONTRAST CLINICAL HISTORY: Nausea. COMPARISON STUDY: Abdominal CT dated 06/16/2016. TECHNIQUE: Following the IV administration of 94 cc of Optiray 320, CT scan of the abdomen and pelvis is performed from the lung bases to the proximal femora. Images are reviewed in the axial, sagittal, and coronal planes. IV contrast was administered without complication. A dose lowering technique was utilized adhering to the principles of ALARA. CT DOSE: 1036.17 mGy.cm FINDINGS: Lung bases: The heart is normal in size and without pericardial effusion. There are foci of bibasilar scarring/atelectasis. No airspace consolidation or pleural effusion is seen. There is a tiny hiatal hernia. Liver: The contrast-enhanced liver is normal in size, contour, and attenuation. There is no intrahepatic biliary ductal dilatation. The hepatic veins and portal veins are patent. Gallbladder: Unremarkable. Spleen: Normal in size and attenuation. Pancreas: Unremarkable. Adrenal glands: Unremarkable. Kidneys: The contrast enhanced kidneys are normal in size and without hydronephrosis. The kidneys enhance symmetrically. There are at least 2 nonobstructing left renal calculi which measure up to 4 mm. Abdominal vasculature: The abdominal aorta is normal in course and caliber. Bowel: There is moderate to advanced diverticulosis of left colon without CT evidence of acute diverticulitis. No bowel obstruction is identified. Colonic fecal retention is observed. The appendix is well-visualized and normal. Peritoneum: There is no intraperitoneal free air or abdominal ascites. Lymphadenopathy: None. Pelvic viscera: The bladder, prostate, and seminal vesicles are normal as visualized. There are postoperative changes from previous left inguinal herniorrhaphy. Skeletal structures: No lytic or blastic lesions are seen. There is a large disc bulge at L3-L4. IMPRESSION: 1. There are no acute infectious or inflammatory findings in the abdomen or pelvis. 2. Nonobstructing left renal calculi. 3. There is moderate to advanced diverticulosis of the left colon without CT evidence of acute diverticulitis. Electronically signed by: Andrea Colón M.D. 01/04/2018 2:47 PM Dictated Date/Time: 01/04/2018 2:41 PM
[2018-01-04 15:06] LABS: BASO % 0.1 %; BASO ABS # 0.01 K/uL (0-0.2); EOS % 1.1 %; EOS ABS # 0.08 K/uL (0-0.5); HEMATOCRIT 46.6 % (42-52); IG# 0.02 K/uL (0.00-0.02); LYMPH % 16.5 %; LYMPH ABS # 1.25 K/uL (1.2-3.4); MEAN CELL VOLUME 88.3 fL (80-100); MEAN CORPUSCULAR HEMOGLOBIN 32.2 pg (25-34); MEAN PLATELET VOLUME 10.4 fL (7.4-10.4); MONO % 8.7 %; MONO ABS # 0.66 K/uL (0.11-0.59); NEUT % 73.3 %; NEUT ABS # 5.55 K/uL (1.4-6.5); PLATELET COUNT 187 K/uL (130-400); RED CELL DISTRIBUTION WIDTH CV 13.4 % (11.5-14.5); RED CELL DISTRIBUTION WIDTH SD 43.5 fL (36.4-46.3); WHITE BLOOD COUNT 7.57 K/uL (4.8-10.8)
[2018-01-04 15:11] LABS: MEAN CORPUSCULAR HGB CONC 36.5 g/dl (32-36)
[2018-01-04 15:17] LABS: ALBUMIN 4.3 gm/dl (3.4-5.0); ALKALINE PHOSPHATASE 69 U/L (45-117); ALT/SGPT 30 U/L (12-78); AST/SGOT 17 U/L (15-37); BLOOD UREA NITROGEN 11 mg/dl (7-18); CALCIUM 9.2 mg/dl (8.5-10.1); CARBON DIOXIDE 27 mmol/L (21-32); CREATININE 1.23 mg/dl (0.60-1.40); GLUCOSE 80 mg/dl (70-99); POTASSIUM 4.3 mmol/L (3.5-5.1); SODIUM 138 mmol/L (136-145); TOTAL PROTEIN 7.9 gm/dl (6.4-8.2)
== END | disposition home or self-care (01) ==
LOC: C.CTS 12:21
PROVIDERS: ATTEND Nurse Practitioner
DX: R11.0 Nausea (principal); R10.30 Lower abdominal pain, unspecified; R19.7 Diarrhea, unspecified; N20.0 Calculus of kidney; K57.30 Diverticulosis of large intestine without perforation or abscess without bleeding

== ENCOUNTER → 2018-01-06 | Outpatient (CLI) | payer OTHER ==
[~2018-01-06] MED LIST changes: -OPTIRAY 320 IV PRN
--- NOTE | 2018-01-06 11:58 | DIAGNOSTIC IMAGING REPORT ---
(TESTICULAR) SCROTUM-CONT CLINICAL HISTORY: 47 years-old Male with N50.819 Testicular [id number]. Acute bilateral scrotal pain COMPARISON STUDY: CT abdomen and pelvis 01/04/2018 TECHNIQUE: Real-time, grayscale, and color Doppler sonography of the testes and scrotum is performed. Images are reviewed in the transverse and longitudinal planes. FINDINGS: RIGHT HEMISCROTUM: The right testis measures 4.5 x 3.5 x 3.2 cm and the parenchyma appears unremarkable. No intratesticular mass is seen. Normal-appearing arterial inflow is present within the right testicle. 3.5 mm right epididymal head cyst. No varicocele is identified. Moderate sized complex hydrocele. LEFT HEMISCROTUM: The left testis measures 4.3 x 3.2 x 2.9 cm and the parenchyma appears unremarkable. No intratesticular mass is seen. Normal-appearing arterial inflow is present within the left testicle. The left epididymal head appears normal. No varicocele is identified. Moderate sized complex hydrocele. Mild scrotal wall edema. No focal abnormality identified within the left inguinal distribution at the area of clinical concern. IMPRESSION: 1. Unremarkable sonographic appearance of the bilateral testicles. 2. Moderate sized bilateral complex hydroceles suggest hematoceles or pyoceles. 3. Subcentimeter right epididymal head cyst. 4. Mild bilateral scrotal wall edema. The above report was generated using voice recognition software. It may contain grammatical, syntax or spelling errors. Electronically signed by: Garfield Uriarte M.D. 01/06/2018 11:56 AM Dictated Date/Time: 01/06/2018 11:52 AM
== END | disposition home or self-care (01) ==
LOC: C.ULTR 10:54
PROVIDERS: ATTEND Nurse Practitioner
DX: N50.819 Testicular pain, unspecified (principal)

== ENCOUNTER → 2018-04-11 | Outpatient (CLI) | payer OTHER ==
[~2018-04-11] MED LIST changes: -AMLO-114 PO; +AMLO10TA3 PO
[2018-04-11 17:39] LABS: BLOOD UREA NITROGEN 11 mg/dl (7-18); CALCIUM 9.2 mg/dl (8.5-10.1); CARBON DIOXIDE 30 mmol/L (21-32); CHOLESTEROL 201 mg/dl (0-200); CREATININE 1.08 mg/dl (0.60-1.40); GLUCOSE 100 mg/dl (70-99); LDL CHOLESTEROL CALCULATED 111 mg/dl; POTASSIUM 3.6 mmol/L (3.5-5.1); SODIUM 140 mmol/L (136-145)
== END | disposition home or self-care (01) ==
LOC: C.LABBFT 13:49
PROVIDERS: ATTEND Physician Assistant Medical
DX: I10 Essential (primary) hypertension (principal)

== ENCOUNTER 2020-08-26 12:03 | Observation (INO) ==
--- NOTE | 2020-08-26 12:26 | Emergency Department Note ---
History of Present Illness General Chief complaint: Shortness of Breath/Dyspnea Stated complaint: SOB,CHEST PAIN,DIZZINESS Time Seen by Provider: 08/26/20 12:09 Source: patient Mode of arrival: ambulatory Limitations: no limitations History of Present Illness Maximum Pain Intensity: 3 This patient presents with continuing shortness of breath after being diagnosed with Covid at the end of June. He had a CT last week which showed some resolving groundglass but no PE. He also had significant calcification of the LAD. He has had chest pain intermittently for the last several weeks. He has been keeping up with his fluids and the GI symptoms he had have resolved. He has had no trauma. No recent fever. He still does have a cough at times that is been nonproductive. Home Medications Medication Instructions Recorded Confirmed Type cholecalciferol (vitamin D3) 75 3,000 units PO QAM tab 02/06/19 08/26/20 History mcg (3,000 unit) tablet carvedilol 6.25 mg tablet 6.25 mg PO BID #180 tab 10/08/19 08/26/20 Rx ondansetron HCl 4 mg PO TID PRN 11/01/19 08/26/20 History atorvastatin 40 mg tablet 40 mg PO QAM #90 tab 12/10/19 08/26/20 Rx amlodipine 10 mg tablet 10 mg PO QAM #90 tab 12/12/19 08/26/20 Rx bupropion HCl 300 mg 24 hr tablet, 300 mg PO QAM #30 tab 01/25/20 08/26/20 Rx extended release albuterol sulfate 90 mcg/actuation 2 puff INH QID PRN #18 gm 07/22/20 08/26/20 Rx aerosol inhaler hydrochlorothiazide 50 mg PO QAM 08/26/20 08/26/20 History levofloxacin 500 mg PO QAM 08/26/20 08/26/20 History losartan 100 mg PO QAM 08/26/20 08/26/20 History spironolactone 25 mg PO QAM 08/26/20 08/26/20 History Allergies Allergy/AdvReac Type Severity Reaction Status Date / Time lisinopril Allergy Mild COUGH Verified 08/26/20 14:26 Past Med/Surg History Medical History Asthma Chest pain Coronary artery calcification GERD (gastroesophageal reflux disease) Hyperlipidemia Hypertension Migraine Sleep apnea BIPAP Temporomandibular joint disorder CLICKS LEFT SIDE-HAS NEVER LOCKED Surgical History H/O CT scan of brain ?? 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 Beliefs That Will Affect Care: None Current Living Situation: Spouse and Family Feels Safe at Home: Yes Assistive Devices: Denture - Upper and Glasses Review of Systems A total of 10 systems reviewed and were otherwise negative Physical Exam Vital Signs Vital Signs - 24 hr 08/26/20 12:05 08/26/20 12:16 08/26/20 12:58 Temperature 37.0 C Temperature Source Oral Pulse Rate 78 82 Pulse Rate [Right Finger] Respiratory Rate 20 18 Respiratory Effort / Characteristics Non-Labored Spontaneous Non-Labored Non-Labored Respiratory Depth Normal Normal Respiratory Pattern Regular Regular Blood Pressure 169/107 H Blood Pressure [Right Arm] Blood Pressure Mean 127 Blood Pressure Mean [Right Arm] Pulse Oximetry 96 97 Oxygen Delivery Method Room Air Room Air Sepsis Recent Fever Within 48 Hours No Sepsis New/Unexplained Change in Mental Status No Sepsis Action Taken by Nursing No Action Required 08/26/20 12:59 08/26/20 13:00 08/26/20 14:25 Temperature Temperature Source Pulse Rate Pulse Rate [Right Finger] 76 80 Respiratory Rate 18 16 Respiratory Effort / Characteristics Respiratory Depth Respiratory Pattern Blood Pressure Blood Pressure [Right Arm] 147/101 H 130/96 Blood Pressure Mean Blood Pressure Mean [Right Arm] 116 107 Pulse Oximetry 97 94 Oxygen Delivery Method Room Air Room Air Room Air Sepsis Recent Fever Within 48 Hours Sepsis New/Unexplained Change in Mental Status Sepsis Action Taken by Nursing General: Well developed well nourished middle-age male who appears in no acute distress, breathing comfortably on room air. Normal speech. Occasional cough. He is wearing a mask HEENT: Normal cephalic atraumatic. Pupils are equal round and reactive to light. Extraocular movements are intact. Oropharynx is pink with moist mucous membranes. No swelling of the mouth lips or tongue. Neck: Supple with a midline trachea. No meningeal signs or stiffness, no JVD or bruits. No Stridor. Chest: Clear to auscultation bilaterally. No wheezes or rhonchi. No increased work of breathing. Heart: Regular rate and rhythm without murmurs or gallops. Abdomen: Soft nontender, nondistended without rebound guarding or rigidity. Extremities: No cyanosis clubbing or edema. No calf tenderness or assymetry Spine/Back. Non tender to palpation. No CVA tenderness Skin: Good turgor without rashes. Neurologic exam: Cranial nerves two through 12 are intact. Motor and sensation are intact and symmetrical throughout. Course Administered Medications Discontinued Medications Aspirin (Aspirin 81 Mg Chew) 324 mg PO NOW STA Stop: 08/26/20 13:49 Last Admin: 08/26/20 14:27 Dose: 324 mg Documented by: [id number] Medical Decision Making Differential Diagnosis Covid, PE, CHF, acute coronary syndrome, arrhythmia, electrolyte or metabolic abnormality, sepsis, pneumonia Medical Records Attestation: I reviewed the patient's medical records. Home Medications Current Medication List: was personally reviewed by me Laboratory Data Attestation: I reviewed the patient's lab results. Result diagrams: 08/26/20 12:28 08/26/20 12:28 Lab Results 08/26/20 08/26/20 08/26/20 Range/Units 12:28 12:28 12:28 WBC 6.39 (4.8-10.8) K/uL RBC 4.99 (4.7-6.1) M/uL Hgb 16.1 (14.0-18.0) g/dL Hct 45.0 (42-52) % MCV 90.2 (80-100) fL MCH 32.3 (25-34) pg MCHC 35.8 (32-36) g/dL RDW Std Deviation 44.1 (36.4-46.3) fL RDW Coeff of Ashly 13.5 (11.5-14.5) % Plt Count 203 (130-400) K/uL MPV 10.2 (7.4-10.4) fL Immature Gran % (Auto) 0.3 % Neut % (Auto) 59.9 % Lymph % (Auto) 27.5 % [place]ates % (Auto) 10.3 % Eos % (Auto) 1.7 % Baso % (Auto) 0.3 % Neut # (Auto) 3.82 (1.4-6.5) K/uL Lymph # (Auto) 1.76 (1.2-3.4) K/uL [place] # (Auto) 0.66 H (0.11-0.59) K/uL Eos # (Auto) 0.11 (0-0.5) K/uL Baso # (Auto) 0.02 (0-0.2) K/uL Immature Gran # (Auto) 0.02 (0.00-0.02) K/uL PT 11.4 (9.0-12.0) Seconds INR 1.1 (0.9-1.1) APTT 32.2 H (21.0-31.0) Seconds PTT Ratio 1.2 D-Dimer < 190 (0-500) ug/L FEU Sodium 138 (136-145) mmol/L Potassium 3.3 L (3.5-5.1) mmol/L Chloride 101 (98-107) mmol/L Carbon Dioxide 33 H (21-32) mmol/L Anion Gap 4.0 (3-11) BUN 20 H (7-18) mg/dl Creatinine 1.38 (0.6-1.4) mg/dl Est Cr Clr Drug Dosing 82.0 ml/min Est GFR ( Amer) 68.1 Est GFR (Non-Af Amer) 58.8 BUN/Creatinine Ratio 14.6 (10-20) Glucose 102 H (70-99) mg/dl Calcium 9.4 (8.5-10.1) mg/dl Total Bilirubin 0.6 (0.2-1) mg/dl AST 17 (15-37) U/L ALT 33 (12-78) U/L Alkaline Phosphatase 68 (45-117) U/L Troponin I < 0.015 (0-0.045) ng/ml Total Protein 7.6 (6.4-8.2) gm/dl Albumin 3.8 (3.4-5.0) gm/dl Globulin 3.8 (2.5-4.0) gm/dl Albumin/Globulin Ratio 1.0 (0.9-2) Lipase 134 (73-393) U/L Imaging Data Attestation: I personally reviewed and interpreted this imaging study as follows: My Impression: X-rayno acute infiltrate, failure, pneumothorax seen Radiologist's Impression: XR chest 1V portable CLINICAL HISTORY: Chest Pain COMPARISON STUDY: Chest CT August 19, 2020. FINDINGS: Lung points are at the lower limits of normal. Lungs are clear. There is no pneumothorax or pleural effusion. Cardiac size is normal. Mediastinal contours are normal. There is no evidence for pulmonary edema. IMPRESSION: No acute cardiopulmonary findings. ECG Data Attestation: I personally reviewed and interpreted this ECG as follows: Indication: + chest pain and + SOB/dyspnea Rate (beats per minute): 77 Rhythm: + normal sinus ECG Intervals/blocks: + Normal QRS, + Normal QT and + Normal AL ECG Lagrange: + Normal ECG Findings: no PACs and no PVCs Comparison ECG Date: from (01/16/17) Change: no significant change MDM Narrative This Patient comes in as described above. He has continuing symptoms of shortness of breath and intermittent chest pain after being diagnosed with Covid back in June. He had a CT done about a week ago which showed no PE. He does have significant LAD calcifications however. His EKG does not show any ischemic changes or ectopy. He was placed on a lithoduplicator operator. Multiple blood testing was obtained including D-dimer and cardiac enzymes. He was reassessed frequently. He is not hypoxemic and appears in no distress. Troponin was negative. D-dimer was negative and makes PE unlikely. The rest of his blood work did look unremarkable. I am concerned that he has had intermittent chest pain shortness of breath and does have a significant calcification of his coronaries and this could certainly be coronary artery disease related. I did discuss the case with Dr. Sweet as well. The patient will be admitted for further treatment, evaluation, andcardiac work-up Continuous cardiac monitoring: An order was placed in the EMR for continuous cardiac monitoring. The patient was noted to be in normal sinus rhythm with a pulse of 78 Impression & Plan Chest pain, Shortness of breath, Calcification of coronary artery, History of 2019 novel coronavirus disease (COVID-19) Discharge Plan Visit Data Chief Complaint: Shortness of Breath/Dyspnea Stated Complaint: SOB,CHEST PAIN,DIZZINESS ED Provider: Liborio Slade Discharge Problem: Chest pain, Shortness of breath, Calcification of coronary artery, History of 2019 novel coronavirus disease (COVID-19) Forms Stand Alone Forms: My [facility] Prescriptions Prescriptions: No Action carvedilol 6.25 mg tablet 6.25 mg PO BID Qty: 180 RF: 3 atorvastatin 40 mg tablet 40 mg PO QAM Qty: 90 RF: 3 amlodipine 10 mg tablet 10 mg PO QAM Qty: 90 RF: 0 bupropion HCl [Wellbutrin XL] 300 mg tablet extended release 24 hr 300 mg PO QAM Qty: 30 RF: 6 cholecalciferol (vitamin D3) 3,000 unit tablet 3,000 units PO QAM RF: 0 albuterol sulfate [Ventolin HFA] 90 mcg/actuation HFA aerosol inhaler 2 puff INH QID PRN (Reason: shortness of breath) Qty: 18 RF: 6 ondansetron HCl 4 mg tablet 4 mg PO TID PRN (Reason: Nausea) RF: 0 hydrochlorothiazide 50 mg tablet 50 mg PO QAM RF: 0 spironolactone 25 mg tablet 25 mg PO QAM RF: 0 levofloxacin 500 mg tablet 500 mg PO QAM RF: 0 losartan 100 mg tablet 100 mg PO QAM RF: 0 Discharge Problem: Chest pain Qualifiers: Chest pain type: other chest pain Qualified Code(s): R07.89 - Other chest pain
[2020-08-26 12:36] LABS: Basophils # (auto) 0.02 K/uL (0-0.2); Basophils % (auto) 0.3 %; Eosinophils # (auto) 0.11 K/uL (0-0.5); Eosinophils % (auto) 1.7 %; Hemoglobin 16.1 g/dL (14.0-18.0); Immature Granulocytes # (auto) 0.02 K/uL (0.00-0.02); Immature Granulocytes % (auto) 0.3 %; Lymphocytes # (auto) 1.76 K/uL (1.2-3.4); Lymphocytes % (auto) 27.5 %; Mean Corpuscular Hemoglobin 32.3 pg (25-34); Mean Corpuscular Hgb Conc 35.8 g/dL (32-36); Mean Corpuscular Volume 90.2 fL (80-100); Mean Platelet Volume 10.2 fL (7.4-10.4); Monocytes # (auto) 0.66 K/uL (0.11-0.59); Monocytes % (auto) 10.3 %; Neutrophils # (auto) 3.82 K/uL (1.4-6.5); Neutrophils % (auto) 59.9 %; Platelet Count 203 K/uL (130-400); RDW Coefficient of Variation 13.5 % (11.5-14.5); RDW Standard Deviation 44.1 fL (36.4-46.3); Red Blood Count 4.99 M/uL (4.7-6.1); White Blood Count 6.39 K/uL (4.8-10.8)
[2020-08-26 12:49] LABS: D Dimer < 190 ug/L FEU (0-500); INR 1.1 (0.9-1.1); Partial Thromboplastin Ratio 1.2; Partial Thromboplastin Time 32.2 Seconds (21.0-31.0); Prothrombin Time 11.4 Seconds (9.0-12.0)
[2020-08-26 12:59] LABS: Alanine Aminotransferase 33 U/L (12-78); Albumin Level 3.8 gm/dl (3.4-5.0); Aspartate Aminotransferase 17 U/L (15-37); BUN Creatinine Ratio 14.6 (10-20); Blood Urea Nitrogen 20 mg/dl (7-18); Calcium 9.4 mg/dl (8.5-10.1); Carbon Dioxide 33 mmol/L (21-32); Chloride 101 mmol/L (98-107); Est GFR (African American) 68.1; Est GFR (Non-African American) 58.8; Glucose 102 mg/dl (70-99); Lipase 134 U/L (73-393); Potassium 3.3 mmol/L (3.5-5.1); Sodium 138 mmol/L (136-145)
--- NOTE | 2020-08-26 13:00 | Electrocardiogram Report ---
Test Reason : Blood Pressure : / mmHG Vent. Rate : 077 BPM Atrial Rate : 077 BPM P-R Int : 178 ms QRS Dur : 092 ms QT Int : 390 ms P-R-T Axes : 031 035 027 degrees QTc Int : 441 ms Normal sinus rhythm Normal ECG When compared with ECG of 16-JAN-2017 12:21, No significant change was found Confirmed by Devon Sweet ([id number]) on 08/26/2020 1:00:14 PM Referred By: Confirmed By:Devon Sweet
[2020-08-26 13:04] LABS: Alkaline Phosphatase 68 U/L (45-117); Bilirubin,Total 0.6 mg/dl (0.2-1); Globulin 3.8 gm/dl (2.5-4.0); Total Protein 7.6 gm/dl (6.4-8.2); Troponin I < 0.015 ng/ml (0-0.045)
--- NOTE | 2020-08-26 13:10 | XRay Report ---
XR chest 1V portable CLINICAL HISTORY: Chest Pain COMPARISON STUDY: Chest CT August 19, 2020. FINDINGS: Lung points are at the lower limits of normal. Lungs are clear. There is no pneumothorax or pleural effusion. Cardiac size is normal. Mediastinal contours are normal. There is no evidence for pulmonary edema. IMPRESSION: No acute cardiopulmonary findings. ACT 112: Negative or not required by law. Electronically signed by: Melvin Rueda M.D. 08/26/2020 1:09 PM
[2020-08-26] MEDS ORDERED: ASPIRIN 81 MG CHEW PO STA (13:48)
[2020-08-26] MEDS ORDERED: ALBUT/IPRATROP 3MG/0.5MG NEB 3 ML VIAL NEB STA (14:57)
--- NOTE | 2020-08-26 15:10 | History & Physical Report ---
Date of Service August 26, 2020 Assessment & Plan (1) Shortness of breath: Mr. Correa is a 50 year old male with a history of Hypertension, Dyslipidemia, Obstructive Sleep Apnea, Morbid Obesity, GERD, Depression, Coronary Artery Calcification (LAD heavily calcified on CT scan 07/2020), Positive DEMETRIUS, and Asthma who presented to [facility] 08/26/2020 complaining of ongoing SOB, HILLIARD, wheezing, cough, and continuous chest tightness over the past several weeks -- in particular the past 3 to 4 weeks. Patient was infected with SARS CoV-2 in June 2020 and did NOT get particularly sick with it -- no hypoxia, SOB, nor was he hospitalized for it. Despite recovering from coronavirus -- he has been left with these symptoms. Patient is concerned about his symptoms -- and he does not want to leave the hospital until he knows what is causing his problem. His chest pain is atypical but he has LAD calcification and a family history of CAD. He describes it as a continuous chest tightness in the middle of his chest, it does not radiate, it's not exertional, positional, or pleuritic. He denies any associated symptoms -- specifically denying any associated nausea, vomiting, or diaphoresis. Patient's symptoms may be residual from coronavirus, or may be an exacerbation of his Asthma. His symptoms do not appear to be cardiac in origin, but with calcified LAD and family history of premature CAD will evaluate for myocardial ischemia at some point pending his clinical course and serial cardiac enzymes. CTA of the Chest 08/19/2020 showed: 1. There is no evidence of pulmonary embolus in the main, lobar, or segmental pulmonary arteries. 2. There are subtle foci of subpleural ground glass consolidation scattered throughout both lungs. The appearance suggests a mild infectious/inflammatory pneumonitis. Clinical correlation will be required. 3. There are significant coronary artery calcifications involving the left coronary artery. Consider nonemergent cardiology follow-up. CXR today shows no acute processes. EKG shows NSR, normal tracing. Normal CBC with diff. Mild hypokalemia with a serum K+ of 3.3 mmol/L. Troponin I is undetectable at < 0.015 ng/ml. Procalcitonin level is pending. Serum STEVIE level is pending. Recommend the following: -- Admit for overnight observation. -- Duoneb Nebulizers q6h and prn. -- IV Methylprednisolone if patient shows response to Duoneb. -- Check procalcitonin level. -- Check serum STEVIE level. -- Consider adding Advair to his regimen. (2) Wheezing: -- As outlined above. (3) Exposure to COVID-19 virus: -- As outlined above. (4) Chest tightness: -- His chest pain is atypical but he has LAD calcification and a family history of CAD (Father had an NJ age 57, Mother had an NJ at the age of 61). -- He describes it as a continuous chest tightness in the middle of his chest, it does not radiate, it's not exertional, positional, or pleuritic. He denies any associated symptoms -- specifically NO associated nausea, vomiting, or diaphoresis. -- Continue Atorvastatin 40 mg daily. -- Begin Aspirin 81 mg daily. -- Continue Coreg 6.25 mg b.i.d.. -- Continue Losartan 100 mg daily. -- Continue Amlodipine 10 mg daily. (5) Coronary artery calcification: -- Continue Atorvastatin 40 mg daily. -- Begin Aspirin 81 mg daily. -- Check serial Troponin I levels. -- Consider stress echocardiogram as an outpatient if enzymes remain negative. History of Present Illness Chief Complaint: -- SOB and Wheezing. -- Continuous chest tightness x 3 weeks. -- History of SARS Co-V 23 June 2020. Primary Care Provider: David Fuller MD Mr. Correa is a 50 year old male with a history of Hypertension, Dyslipidemia, Obstructive Sleep Apnea, Morbid Obesity, GERD, Depression, Coronary Artery Calcification (LAD heavily calcified on CT scan 07/2020), Positive DEMETRIUS, and Asthma who presented to [facility] 08/26/2020 complaining of ongoing SOB, HILLIARD, wheezing, cough, and continuous chest tightness over the past several weeks -- in particular the past 3 to 4 weeks. Patient was infected with SARS CoV-2 in June 2020 and did NOT get particularly sick with it -- no hypoxia, SOB, nor was he hospitalized for it. Despite recovering from coronavirus -- he has been left with these symptoms. Patient is concerned about his symptoms -- and he does not want to leave the hospital until he knows what is causing his problem. His chest pain is atypical but he has LAD calcification and a family history of CAD (Father had an NJ age 57, Mother had an NJ at the age of 61). He describes it as a continuous chest tightness in the middle of his chest, it does not radiate, it's not exertional, positional, or pleuritic. He denies any associated symptoms -- specifically denying any associated nausea, vomiting, or diaphoresis. Patient is currently on Levaquin, and he did complete a tapering course of Medrol as an outpatient -- he does not feel that the steroid helped with his symptoms. Allergies Allergy/AdvReac Type Severity Reaction Status Date / Time lisinopril Allergy Mild COUGH Verified 08/26/20 14:26 Home Medications Medication Instructions Recorded Confirmed Type cholecalciferol (vitamin D3) 75 3,000 units PO QAM tab 02/06/19 08/26/20 History mcg (3,000 unit) tablet carvedilol 6.25 mg tablet 6.25 mg PO BID #180 tab 10/08/19 08/26/20 Rx ondansetron HCl 4 mg PO TID PRN 11/01/19 08/26/20 History atorvastatin 40 mg tablet 40 mg PO QAM #90 tab 12/10/19 08/26/20 Rx amlodipine 10 mg tablet 10 mg PO QAM #90 tab 12/12/19 08/26/20 Rx bupropion HCl 300 mg 24 hr tablet, 300 mg PO QAM #30 tab 01/25/20 08/26/20 Rx extended release albuterol sulfate 90 mcg/actuation 2 puff INH QID PRN #18 gm 07/22/20 08/26/20 Rx aerosol inhaler hydrochlorothiazide 50 mg PO QAM 08/26/20 08/26/20 History levofloxacin 500 mg PO QAM 08/26/20 08/26/20 History losartan 100 mg PO QAM 08/26/20 08/26/20 History spironolactone 25 mg PO QAM 08/26/20 08/26/20 History aspirin 81 mg PO DAILY 15 Days #15 tab 08/27/20 Rx Past Med/Surg History Medical History Asthma Chest pain Coronary artery calcification GERD (gastroesophageal reflux disease) Hyperlipidemia Hypertension Migraine Sleep apnea BIPAP Temporomandibular joint disorder CLICKS LEFT SIDE-HAS NEVER LOCKED Surgical History H/O CT scan of brain ?? UNDER ANESTHESIA History of colonoscopy History of herniorrhaphy Family History Uncle Family history of diabetes mellitus Uncle Family history of diabetes mellitus Uncle Family history of diabetes mellitus Social History Smoking Status: Never smoker Second Hand Exposure: Yes (FATHER SMOKED); Hx Alcohol Use: No Hx Substance Use: No Preferred Language: Singaporean Communication Ability: Effective Reimbursement Liaison Required: No Beliefs That Will Affect Care: None Current Living Situation: Spouse Feels Safe at Home: Yes Assistive Devices: Glasses Review of Systems Review of Systems: All systems reviewed & are unremarkable except as noted in Subjective Physical Exam Physical Exam: GENERAL: Patient in no acute distress. HEENT: Head is atraumatic, normocephalic. EOM's intact. Facies symmetric. No perioral cyanosis. NECK: No JVD. JVP is at the level of the clavicle sitting upright. Carotid upstrokes are + 2 bilaterally. No bruits are noted. CHEST/LUNGS: Patient has difficulty talking without coughing. Scattered late expiratory wheezes and prolonged expiratory phase. No rales or crackles. CVS: S1 and S2 are regular without murmurs, gallops, or rubs. PMI is nonpalpable. No lifts, heaves, or thrills. No abdominal aortic or renal bruits. ABDOMINAL EXAM: Bowel sounds are present. No masses, organomegaly, or te nderness. EXTREMITIES: No clubbing or cyanosis. No edema. Intact posterior tibial and radial pulses bilaterally. NEUROLOGIC EXAM: Patient is awake, alert, and oriented. Pleasant and cooperative. Answers questions appropriately. Speech is clear. Harness Inspector shows NSR. Results & Data Results & Data ([facility]) Vital Signs (Past 12 Hours) Vital Signs Temp Pulse Pulse Resp BP BP Pulse Ox 08/26/20 14:25 80 16 130/96 94 08/26/20 12:59 76 18 147/101 H 97 08/26/20 12:58 82 18 97 08/26/20 12:05 37.0 C 78 20 169/107 H 96 Laboratory Results Laboratory Results - last 24 hr 08/26/20 08/26/20 08/26/20 12:28 12:28 12:28 WBC 6.39 RBC 4.99 Hgb 16.1 Hct 45.0 MCV 90.2 MCH 32.3 MCHC 35.8 RDW Std Deviation 44.1 RDW Coeff of Ashly 13.5 Plt Count 203 MPV 10.2 Immature Gran % (Auto) 0.3 Neut % (Auto) 59.9 Lymph % (Auto) 27.5 [place] % (Auto) 10.3 Eos % (Auto) 1.7 Baso % (Auto) 0.3 Neut # (Auto) 3.82 Lymph # (Auto) 1.76 [place] # (Auto) 0.66 H Eos # (Auto) 0.11 Baso # (Auto) 0.02 Immature Gran # (Auto) 0.02 PT 11.4 INR 1.1 APTT 32.2 H PTT Ratio 1.2 D-Dimer < 190 Sodium 138 Potassium 3.3 L Chloride 101 Carbon Dioxide 33 H Anion Gap 4.0 BUN 20 H Creatinine 1.38 Est Cr Clr Drug Dosing 82.0 Est GFR ( Amer) 68.1 Est GFR (Non-Af Amer) 58.8 BUN/Creatinine Ratio 14.6 Glucose 102 H Calcium 9.4 Total Bilirubin 0.6 AST 17 ALT 33 Alkaline Phosphatase 68 Troponin I < 0.015 Total Protein 7.6 Albumin 3.8 Globulin 3.8 Albumin/Globulin Ratio 1.0 Lipase 134 Medications Administered Active Medications Generic Name Dose Route Start Last Admin Trade Name Freq PRN Reason Stop Dose Admin Albuterol 3 ml 08/26/20 19:00 Albut/Ipratrop 3mg/0.5mg Neb 3 Ml Vial NEB 09/25/20 18:59 QIDR VAHE Aspirin 81 mg 08/27/20 09:00 Aspirin 81 Mg Ectab PO 09/26/20 08:59 DAILY VAHE Enoxaparin Sodium 40 mg 08/26/20 18:00 Enoxaparin Inj 40 Mg/0.4 Ml Syr SQ 09/25/20 17:59 Q12H VAHE Code Status & VTE Plan VTE Prophylaxis Plan VTE Prophylaxis will be ordered: Yes Supervising Physician Co-Signing Physician Notes I personally saw and examined the patient. I verified all cross points and agree with GINA Castillo with the following exceptions and/or additions: 50-year-old male who presents to the ER with ongoing pleuritic chest pain and shortness of breath especially on exertion since his COVID-19 diagnosis. No improvement on Levaquin. O/E CTAB, no wheezing, chest pain not reproducible, Abdo SNT, no respiratory distress A/P Pleuritic chest pain -no evidence of ongoing pneumonia on labs, stop Levaquin. Suspect secondary to pleurisy from COVID-19. No need to repeat CT for PE given similar pain for his previous scan arranged by his PCP on August 18. Possible benefit form additional steroid course as this helped him for a few days in the past but I suspect he may just need time to recover. We will treat with Solu- Medrol overnight to see whether this helps with possible need for prednisone taper as outpatient. No evidence of pericardial effusion on CT. Nonpositional and no EKG changes to suggest pericarditis. Shortness of breath on exertion -suspect he is having a prolonged recovery from COVID-19 however difficult to rule out anginal equivalent shortness of breath. Dopamine stress echo ordered for a.m. PG Care Time/CCT Total # of Minutes Spent Total Time Spent: 35 Total Time Spent with Patient: Total time spent is greater than 50% in coordination of care (as documented) at patient's floor/unit and/or counseling patient: Coding Level of Care Code 78605 OBS Care - Level 3 Diagnoses Shortness of breath R06.02 Wheezing R06.2 Exposure to COVID-19 virus Z20.828 Chest tightness R07.89 Coronary artery calcification I25.10; I25.84 Time Spent (min) 55
[2020-08-26] MEDS ORDERED: ENOXAPARIN INJ 40 MG/0.4 ML SYR SQ SCH (18:00)
[2020-08-26 18:59] LABS: Basophils # (auto) 0.03 K/uL (0-0.2); Basophils % (auto) 0.5 %; Eosinophils # (auto) 0.11 K/uL (0-0.5); Eosinophils % (auto) 1.7 %; Hematocrit (blood only) 43.7 % (42-52); Hemoglobin 15.6 g/dL (14.0-18.0); Immature Granulocytes # (auto) 0.01 K/uL (0.00-0.02); Immature Granulocytes % (auto) 0.2 %; Lymphocytes # (auto) 2.32 K/uL (1.2-3.4); Lymphocytes % (auto) 36.3 %; Mean Corpuscular Hgb Conc 35.7 g/dL (32-36); Mean Corpuscular Volume 89.7 fL (80-100); Mean Platelet Volume 10.3 fL (7.4-10.4); Monocytes # (auto) 0.59 K/uL (0.11-0.59); Monocytes % (auto) 9.2 %; Neutrophils # (auto) 3.34 K/uL (1.4-6.5); Neutrophils % (auto) 52.1 %; Platelet Count 227 K/uL (130-400); RDW Coefficient of Variation 13.5 % (11.5-14.5); RDW Standard Deviation 43.7 fL (36.4-46.3); Red Blood Count 4.87 M/uL (4.7-6.1)
[2020-08-26] MEDS ORDERED: ALBUTEROL HFA 8 GM INHALER INH PRN (19:15)
[2020-08-26] MEDS ORDERED: ONDANSETRON 4 MG OD TAB PO PRN (19:23)
[2020-08-26 19:24] LABS: BUN Creatinine Ratio 14.7 (10-20); Blood Urea Nitrogen 20 mg/dl (7-18); Calcium 9.6 mg/dl (8.5-10.1); Carbon Dioxide 31 mmol/L (21-32); Chloride 102 mmol/L (98-107); Creatinine Clr Calc Pharmacy 82.6 ml/min; Est GFR (African American) 68.7; Est GFR (Non-African American) 59.3; Glucose 79 mg/dl (70-99); Potassium 3.6 mmol/L (3.5-5.1); Sodium 138 mmol/L (136-145)
[2020-08-26 19:29] LABS: Troponin I < 0.015 ng/ml (0-0.045)
[2020-08-26] MEDS ORDERED: INFLUENZA ADMINISTRATION CHARGE ONE (19:30)
[2020-08-26] MEDS ORDERED: INFLUENZA VIRUS QUAD VACCINE 0.5 ML SYR IM ONE (19:30)
[2020-08-26] MEDS: ALBUT/IPRATROP 3MG/0.5MG NEB 3 ML VIAL NEB SCH (19:34)
[2020-08-26] MEDS: FLUTICASONE/VILANTEROL 200/25MCG 14 PUFFS/INHALER INH SCH (21:09)
[2020-08-26] MEDS: carvediloL 6.25 MG TAB PO SCH (21:10)
[2020-08-26] MEDS: methylPREDNISolone 60 MG in SYRINGE 0 ML IV SCH (21:10)
[2020-08-26] MEDS ORDERED: methylPREDNISolone 125 MG/2 ML VIAL IV SCH (22:00)
[2020-08-27] MEDS: methylPREDNISolone 60 MG in SYRINGE 0 ML IV SCH (05:13)
[2020-08-27 06:29] LABS: Hematocrit (blood only) 44.1 % (42-52); Hemoglobin 15.7 g/dL (14.0-18.0); Immature Granulocytes # (auto) 0.02 K/uL (0.00-0.02); Immature Granulocytes % (auto) 0.3 %; Lymphocytes # (auto) 0.95 K/uL (1.2-3.4); Lymphocytes % (auto) 15.2 %; Mean Corpuscular Hemoglobin 31.9 pg (25-34); Mean Corpuscular Hgb Conc 35.6 g/dL (32-36); Mean Corpuscular Volume 89.6 fL (80-100); Mean Platelet Volume 10.6 fL (7.4-10.4); Monocytes # (auto) 0.04 K/uL (0.11-0.59); Monocytes % (auto) 0.6 %; Neutrophils # (auto) 5.24 K/uL (1.4-6.5); Neutrophils % (auto) 83.9 %; Platelet Count 221 K/uL (130-400); RDW Coefficient of Variation 13.5 % (11.5-14.5); RDW Standard Deviation 44.2 fL (36.4-46.3); Red Blood Count 4.92 M/uL (4.7-6.1); White Blood Count 6.25 K/uL (4.8-10.8)
[2020-08-27 07:05] LABS: BUN Creatinine Ratio 15.2 (10-20); Calcium 9.8 mg/dl (8.5-10.1); Creatinine Clr Calc Pharmacy 79.2 ml/min; Est GFR (African American) 65.3; Est GFR (Non-African American) 56.3; Potassium 3.5 mmol/L (3.5-5.1)
[2020-08-27] MEDS: FLUTICASONE/VILANTEROL 200/25MCG 14 PUFFS/INHALER INH SCH (07:41)
[2020-08-27] MEDS: carvediloL 6.25 MG TAB PO SCH (07:42)
[2020-08-27] MEDS: ALBUT/IPRATROP 3MG/0.5MG NEB 3 ML VIAL NEB SCH ×2 (07:52→11:24)
[2020-08-27] MEDS ORDERED: METOPROLOL TARTRATE 1 MG/ML VIAL IV ONE (08:41)
[2020-08-27] MEDS ORDERED: DOBUTamine HCL 12.5 MG/ML 20 ML VIAL IV ONE (08:41)
[2020-08-27] MEDS ORDERED: ATROPINE SULFATE 0.1 MG/ML 10ML SYR IV ONE (08:41)
[2020-08-27] MEDS ORDERED: SPIRONOLACTONE 25 MG TAB PO SCH (09:00)
[2020-08-27] MEDS ORDERED: CHOLECALCIFEROL 1,000 UNITS 25 MCG TAB PO SCH (09:00)
[2020-08-27] MEDS ORDERED: levoFLOXacin 500 MG TAB PO SCH (09:00)
[2020-08-27] MEDS ORDERED: ATORVASTATIN 40 MG TAB PO SCH (09:00)
[2020-08-27] MEDS ORDERED: LOSARTAN POTASSIUM 50 MG TAB PO SCH (09:00)
[2020-08-27] MEDS ORDERED: amLODIPine BESYLATE 5 MG TAB PO SCH (09:00)
[2020-08-27] MEDS ORDERED: buPROPion XL 300 MG TABCR PO SCH (09:00)
[2020-08-27] MEDS ORDERED: ASPIRIN 81 MG ECTAB PO SCH (09:00)
[2020-08-27] MEDS ORDERED: hydroCHLOROthiazide 25 MG TAB PO SCH (09:00)
--- NOTE | 2020-08-27 10:51 | Discharge Summary ---
Date of Service August 27, 2020 Admission HPI Per Admitting Provider Mr. Correa is a 50 year old male with a history of Hypertension, Dyslipidemia, Obstructive Sleep Apnea, Morbid Obesity, GERD, Depression, Coronary Artery Calcification (LAD heavily calcified on CT scan 07/2020), Positive DEMETRIUS, and Asthma who presented to [facility] 08/26/2020 complaining of ongoing SOB, HILLIARD, wheezing, cough, and continuous chest tightness over the past several weeks -- in particular the past 3 to 4 weeks. Patient was infected with SARS CoV-2 in June 2020 and did NOT get particularly sick with it -- no hypoxia, SOB, nor was he hospitalized for it. Despite recovering from coronavirus -- he has been left with these symptoms. Patient is concerned about his symptoms -- and he does not want to leave the hospital until he knows what is causing his problem. His chest pain is atypical but he has LAD calcification and a family history of CAD (Father had an NE age 57, Mother had an NE at the age of 61). He describes it as a continuous chest tightness in the middle of his chest, it does not radiate, it's not exertional, positional, or pleuritic. He denies any associated symptoms -- specifically denying any associated nausea, vomiting, or diaphoresis. Patient is currently on Levaquin, and he did complete a tapering course of Medrol as an outpatient -- he does not feel that the steroid helped with his symptoms. Admission Exam Per Admitting Provider GENERAL: Patient in no acute distress. HEENT: Head is atraumatic, normocephalic. EOM's intact. Facies symmetric. No perioral cyanosis. NECK: No JVD. JVP is at the level of the clavicle sitting upright. Carotid upstrokes are + 2 bilaterally. No bruits are noted. CHEST/LUNGS: Patient has difficulty talking without coughing. Scattered late expiratory wheezes and prolonged expiratory phase. No rales or crackles. CVS: S1 and S2 are regular without murmurs, gallops, or rubs. PMI is nonpalpable. No lifts, heaves, or thrills. No abdominal aortic or renal bruits. ABDOMINAL EXAM: Bowel sounds are present. No masses, organomegaly, or tenderness. EXTREMITIES: No clubbing or cyanosis. No edema. Intact posterior tibial and radial pulses bilaterally. NEUROLOGIC EXAM: Patient is awake, alert, and oriented. Pleasant and cooperative. Answers questions appropriately. Speech is clear. Diabetes Territory Manager shows NSR. Principal Diagnosis Chest pain Discharge Exam GENERAL: Patient in no acute distress. HEENT: Head is atraumatic, normocephalic. EOM's intact. Facies symmetric. No perioral cyanosis. NECK: No JVD. CHEST/LUNGS: Patient has difficulty talking without coughing. Scattered late expiratory wheezes and prolonged expiratory phase. No rales or crackles. CVS: S1 and S2 are regular without murmurs, gallops, or rubs. PMI is nonpalpable. No lifts, heaves, or thrills. No abdominal aortic or renal bruits. ABDOMINAL EXAM: Bowel sounds are present. No masses, organomegaly, or tenderness. EXTREMITIES: No clubbing or cyanosis. No edema. Intact posterior tibial and radial pulses bilaterally. NEUROLOGIC EXAM: Patient is awake, alert, and oriented. Pleasant and cooperative. Answers questions appropriately. Speech is clear. Discharge Data Allergies Allergy/AdvReac Type Severity Reaction Status Date / Time lisinopril Allergy Mild COUGH Verified 08/26/20 14:26 Consultations 08/26/20 13:49 ED Decision to Admit Stat Hospital Course (1) Chest pain: Chest pain Left lateral along ribs, non reproducible does not seem to be related to activity Admitted for chest pain rule out, troponins negative x3, Dobutamine Stress echo negative EKG normal sinus rhythm without ST changes At this time feel safe to discharge patient home with close outpatient follow up. Pain could be muscle spasm that comes and goes or GERD, however patient certainly has many risk factors for coronary artery disease Added daily baby aspirin to patient's medication regime and instructed on symptoms that would require emergent medical evaluation Shortness of breath Improving, over course of a month, CT scan showing ground glass opacitites suspicious for lung inflammation scarring secondary to COVID infection a month and a half ago. At this time patient is doing well, oxygenating appropriately on room air without increased work of breathing and we will have patient follow up with PCP as an outpatient for monitoring of continued resolution (2) Shortness of breath: (3) Calcification of coronary artery: (4) History of 2019 novel coronavirus disease (COVID-19): (5) Chest tightness: Total Time Total Time Spent Total Time Spent (In Minutes): 25 Discharge Plan Discharge Items Patient Disposition: Home - Self-Care Reason For Visit: SOB,CHEST PAIN,DIZZINESS Discharge Diagnosis: Non cardiac chest pain and shortness of breath Activity: Per Instructions section Non-emergency contact: Primary Care Provider Call non-emergency contact if: you have any medication questions and your symptoms worsen Follow-up/Referrals: Conner Fuller MD [Primary Care Provider] - 09/02/20 11:30 am (You have an appt on 09/02 @ 0115 with your PCP to follow up from being in the hospital. It is important that you keep this appt, if for any reason it does not fit into your schedule, please call [phone] to reschedule.) Diet: Heart Healthy and Low Sodium (2gm) Addtl Attending Provider Instructions: MR. Correa, It was a pleasure taking care of you for your chest pain and shortness of breath. Fortunately after running our battery of tests and subjecting you to a dobutamine stress echo we do not see any evidence of ischemic heart disease at present that is causing your symptoms of chest pressure. We do see evidence of some inflammation in your lungs on CT scan that we think may be related to your previous COVID illness. It would be worthwhile to follow up with your primary care doctor within the next week to further discuss the shortness of breath and chest tightness. While we do not see any evidence of any acute heart disease at the moment, you certainly are at high risk to have a heart attack with your family history and evidence of coronary artery calcification on CT scan. We recommend starting a daily baby aspirin and if you have chest pain or shortness of breath that comes back in the future and does not relent or is worsened with physical activity please do not hesitate to return to medical care for further evaluation. It was a pleasure meeting you and we wish you all the best moving forward. Chinmay Miranda MD Pending Studies at Discharge: No Stand-Alone Forms: [employer] [email or web address], Smoking Cessation Medications and DC Order Prescriptions: New aspirin 81 mg Tablet,Delayed Release (Dr/Ec) 81 mg PO DAILY 15 Days Qty: 15 RF: 0 Continued carvedilol 6.25 mg tablet 6.25 mg PO BID Qty: 180 RF: 3 atorvastatin 40 mg tablet 40 mg PO QAM Qty: 90 RF: 3 amlodipine 10 mg tablet 10 mg PO QAM Qty: 90 RF: 0 bupropion HCl [Wellbutrin XL] 300 mg tablet extended release 24 hr 300 mg PO QAM Qty: 30 RF: 6 cholecalciferol (vitamin D3) 3,000 unit tablet 3,000 units PO QAM RF: 0 albuterol sulfate [Ventolin HFA] 90 mcg/actuation HFA aerosol inhaler 2 puff INH QID PRN (Reason: shortness of breath) Qty: 18 RF: 6 ondansetron HCl 4 mg tablet 4 mg PO TID PRN (Reason: Nausea) RF: 0 hydrochlorothiazide 50 mg tablet 50 mg PO QAM RF: 0 spironolactone 25 mg tablet 25 mg PO QAM RF: 0 levofloxacin 500 mg tablet 500 mg PO QAM RF: 0 losartan 100 mg tablet 100 mg PO QAM RF: 0 Discharge Orders: Discharge Order (Routine); Ordered 08/27/20 Ordered By: Chinmay Miranda Admission Data Admit Date/Time: 08/26/20 14:42 Attending Provider: Conner Arita Admit Provider: José Luis Lazar Primary Care Provider: Conner Fuller Other Providers: José Luis Lazar Other Interventions: Discharge Summary Assessment (RN) Last Done: 08/27/20 11:34 Supervising Physician Co-Signing Physician Notes Attending attestation Pt seen and examined in concert with Dr. Miranda. In agreement with the documented findings as noted in the resident documentation with any exceptions or additions as noted here. 50 y/o male h/o HTN, hyperlipidemia, MELANY, asthma, COVID-19 in Jun 2020 Intermittent left lower chest pain described as aching/pressure has not recurred since last evening. On examination, S1/S2 nl RRR no MCG. CTAB. Abd NT/ND BS+ve Chest pain - negative dobutamine stress & troponins - ASA along with present home regimen. Close follow up with PCP. Else see resident documentation as noted. Resident Activity Tracking Resident Involvement: Resident Care Provided Care Provided: Adult Hospital Medicine
[2020-08-27 11:26] VITALS: O2SAT 90
[2020-08-27 12:01] VITALS: BP 152/84; PULSE 96; TEMP 98.1
--- NOTE | 2020-08-27 13:01 | XCELERA ---
[id number]
== END 2020-08-27 13:30 | disposition home or self-care (01) ==
LOC: 2N 12:03 → ED 12:03 → SUATTDRO 14:42 → 2N 17:58